=== PATIENT | male | born 1960 | race Caucasian/White ===

== ENCOUNTER 2017-11-28 15:00 | Emergency (ER) | END 2017-11-28 17:21 | disposition home or self-care (01) ==

== ENCOUNTER 2017-12-01 02:14 | Emergency (ER) | END 2017-12-01 05:35 | disposition home or self-care (01) ==

== ENCOUNTER 2017-12-07 13:09 | Emergency (ER) | END 2017-12-07 17:07 | disposition home or self-care (01) ==

== ENCOUNTER 2017-12-24 14:15 | Emergency (ER) | END 2017-12-24 18:36 | disposition home or self-care (01) ==

== ENCOUNTER 2017-12-26 11:16 | Emergency (ER) | END 2017-12-26 14:53 | disposition home or self-care (01) ==

== ENCOUNTER 2018-07-15 17:56 | Emergency (ER) | END 2018-07-16 07:31 | disposition home or self-care (01) ==

== ENCOUNTER 2018-07-23 16:28 | Observation (INO) | END 2018-07-24 17:30 | disposition home or self-care (01) ==

== ENCOUNTER 2018-10-05 18:07 | Emergency (ER) | END 2018-10-05 23:45 | disposition home or self-care (01) ==

== ENCOUNTER 2018-12-23 09:13 | Observation (INO) | payer MEDICAID ==
[~2018-12-23] VITALS: Ht 175.3 cm; Wt 56.1 kg
[~2018-12-23 09:13] MED LIST: ASPI-831 PO; ATOR40TA68 PO; CLOP75TA28 PO; FAMO-96 PO; IBUP-1542 PO; METO-448 PO; NAPR-688 PO
--- NOTE | 2018-12-23 10:45 | ERD ---
ER Documentation Chief Complaint Chief Complaint intermittent CP x 1 year, worsening x this am HPI 58-year-old male presents to the emergency department complaining of chest pain. Patient is a somewhat difficult historian. He states he has had on and off chest pain for some time now, but over the last few hours, he had acute worse wilfred of his chest discomfort. He reports no fevers, chills, shortness of breath. He reports no sputum production or hemoptysis. His pain is in the center of his chest and does not radiate. He is unable to tell me if it is exertional or positional. It is currently moderate in severity. ROS All systems reviewed and are negative except as per history of present illness. Medications Home Meds Active Scripts Aspirin (Aspirin) 81 Mg Chew, 81 MG PO DAILY, #30 TAB Prov:STEVE DYSON 06/23/18 Metoprolol Tartrate* (Lopressor*) 25 Mg Tab, 12.5 MG PO BID, #60 TAB Prov:STEVE DYSON 06/23/18 Atorvastatin* (Atorvastatin*) 40 Mg Tablet, 40 MG PO HS, #30 TAB Prov:STEVE DYSON 06/23/18 Clopidogrel Bisulfate (Clopidogrel) 75 Mg Tablet, 75 MG PO DAILY, #60 TAB Prov:STEVE DSYON 06/23/18 Famotidine* (Pepcid*) 20 Mg Tablet, 20 MG PO BID, #30 TAB Prov:HOWIE MONROE MD 11/21/17 Discontinued Scripts Ibuprofen* (Motrin*) 600 Mg Tab, 600 MG PO Q6, #15 TAB Prov:ALEJANDRO PIEDRA MD 07/21/18 Naproxen* (Naproxen*) 500 Mg Tablet, 500 MG PO BID PRN for PAIN, #30 TAB Prov:GABRIELA CHO PA-C 12/26/17 Allergies Allergies: Coded Allergies: No Known Allergy (Unverified , 12/23/18) PMhx/Soc Medical and Surgical Hx: pt denies Medical Hx, pt denies Surgical Hx History of Surgery: No Anesthesia Reaction: No Hx Neurological Disorder: No Hx Respiratory Disorders: No Hx Cardiac Disorders: Yes (HTN) Hx Psychiatric Problems: No Hx Miscellaneous Medical Probl: No Hx Alcohol Use: Yes Hx Substance Use: No Hx Tobacco Use: Yes Smoking Status: Current every day smoker FmHx No known history of heart disease. Physical Exam Vitals Vital Signs Date Temp Pulse Resp B/P (MAP) Pulse Ox O2 O2 Flow FiO2 Time Delivery Rate 12/23/18 Nasal 2 09:49 Cannula 12/23/18 97.0 96 18 132/80 99 09:16 (97) Physical Exam GENERAL: The patient is well developed and appropriate for usual state of health in no apparent distress HEENT: Pupils equal, round, and reactive to light. EOMI. There is no scleral icterus. NECK: C-spine is soft and supple, there is no meningismus. There is no cervical lymphadenopathy. LUNGS: Clear to auscultation bilaterally. There are no rales, wheezes or rhonchi. HEART: Regular rate and rhythm, no murmurs, clicks, rubs or gallops. ABDOMEN: Soft, non-tender, non-distended. There are bowel sounds in all four quadrants. No rebound or guarding. EXTREMITIES: There is no peripheral cyanosis or edema. No focal swelling or erythema. NEURO: The patient moves all four extremities with 5/5 strength. Cranial nerves II - XII are intact. Normal gait. Alert and oriented SKIN: There is no apparent rash or petechiae. HEME/LYMPHATIC: There is no evidence of excessive bruising or lymphedema. PSYCHIATRIC: The patient does not appear anxious or depressed. Result Diagram: 12/23/18 0947 12/23/18 0947 Results 24 hrs Laboratory Tests Test 12/23/18 09:47 White Blood Count 6.3 10^3/ul Red Blood Count 4.96 10^6/ul Hemoglobin 15.4 g/dl Hematocrit 45.9 % Mean Corpuscular Volume 92.5 fl Mean Corpuscular Hemoglobin 31.0 pg Mean Corpuscular Hemoglobin Concent 33.6 g/dl Red Cell Distribution Width 12.0 % Platelet Count 251 10^3/UL Mean Platelet Volume 10.8 fl Immature Granulocytes % 0.200 % Neutrophils % 38.9 % Lymphocytes % 27.6 % Monocytes % 11.0 % Eosinophils % 21.7 % Basophils % 0.6 % Nucleated Red Blood Cells % 0.0 /100WBC Immature Granulocytes # 0.010 10^3/ul Neutrophils # 2.5 10^3/ul Lymphocytes # 1.7 10^3/ul Monocytes # 0.7 10^3/ul Eosinophils # 1.4 10^3/ul Basophils # 0.0 10^3/ul Nucleated Red Blood Cells # 0.0 10^3/ul Sodium Level 141 mmol/L Potassium Level 4.1 mmol/L Chloride Level 101 mmol/L Carbon Dioxide Level 30 mmol/L Anion Gap 10 Blood Urea Nitrogen 17 mg/dl Creatinine 0.74 mg/dl Est Glomerular Filtrat Rate mL/min > 60 mL/min Glucose Level 97 mg/dl Calcium Level 9.7 mg/dl Troponin I < 0.012 ng/ml Procedures/MDM Patient was taken to a room, seen and evaluated. Comfort measures were initiate d. Diagnostic tests were ordered and reviewed. 3 LEAD RHYTHM STRIP: Normal sinus rhythm without ectopy EK lead EKG reviewed by myself: Normal Sinus Rhythm LVH Nonspecific ST and T wave changes with questionable peaked T waves in the anterior leads Impression: Abnormal nonspecific EKG Repeat EKG interpreted by myself: Normal Sinus Rhythm LVH Nonspecific ST and T wave changes with questionable peaked T waves in the anterior leads Impression: Abnormal nonspecific EKG RADIOLOGY: Reviewed with the radiologist CONSULTATION: Hospitalist was notified for admission REEVALUATION: Diagnostic tests were appreciated. Patient remained hemodynamic is stable. MEDICAL DECISION MAKIN-year-old male presents the emergency room with chest pain of uncertain etiology. Given his abnormal EKG, patient will be admitted for cardiac observation and serial troponins. His chest x-ray and overall clinical examination indicates he is unlikely to have thoracic concerns including aortic dissection or pulmonary embolism. Departure Diagnosis: Primary Impression: Chest pain Condition: Brent CLAROSVANESSA Dec 23, 2018 10:45
--- NOTE | 2018-12-23 14:54 | HP ---
Date/Time of Note Date/Time of Note DATE: 12/23/18 TIME: 14:52 Assessment/Plan Lines/Catheters IV Catheter Type (from [facility]): Saline Lock Assessment/Plan Hospital Course 1. Chest pain 2. CAD PLAN: Telemetry admission, trend cardiac enzymes, 2d echo if none recently and possible cardiology consult for stress test. oxygen and nitroglycerin therapy as needed. Daily aspirin if no allergy or bleeding risk. Get lipid profile, magnesium and TSH levels in am. Result Diagram: 12/23/18 0947 12/23/18 0947 Results 24hrs Laboratory Tests Test 12/23/18 09:47 White Blood Count 6.3 # Red Blood Count 4.96 Hemoglobin 15.4 Hematocrit 45.9 Mean Corpuscular Volume 92.5 Mean Corpuscular Hemoglobin 31.0 Mean Corpuscular Hemoglobin Concent 33.6 Red Cell Distribution Width 12.0 Platelet Count 251 Mean Platelet Volume 10.8 H Immature Granulocytes % 0.200 Neutrophils % 38.9 L Lymphocytes % 27.6 Monocytes % 11.0 Eosinophils % 21.7 H Basophils % 0.6 Nucleated Red Blood Cells % 0.0 Immature Granulocytes # 0.010 Neutrophils # 2.5 Lymphocytes # 1.7 Monocytes # 0.7 Eosinophils # 1.4 H Basophils # 0.0 Nucleated Red Blood Cells # 0.0 Sodium Level 141 Potassium Level 4.1 Chloride Level 101 Carbon Dioxide Level 30 Anion Gap 10 Blood Urea Nitrogen 17 Creatinine 0.74 Est Glomerular Filtrat Rate mL/min > 60 Glucose Level 97 Calcium Level 9.7 Troponin I < 0.012 HPI/ROS Admit Date/Time Admit Date/Time PMH/Family/Social Past Medical History Coded Allergies: No Known Allergy (Unverified , 12/23/18) Past Surgical History Past Surgical Hx: no surgical history Family History Significant Family History: no pertinent family hx Social History Smoking Status: Current every day smoker Exam/Review of Systems Vital Signs Vitals Vital Signs Date Temp Pulse Resp B/P (MAP) Pulse Ox O2 O2 Flow FiO2 Time Delivery Rate 12/23/18 66 18 105/79 98 Room Air 11:12 (88) 12/23/18 2 09:49 12/23/18 97.0 09:16 XOCHITL SEARS Dec 23, 2018 14:53
[2018-12-23 17:48] VITALS: PULSE 59
[2018-12-23 18:06] VITALS: Ht 175.3 cm; Wt 56.1 kg
[2018-12-23 18:10] VITALS: BP 115/73; PULSE 63; RESP 18
[2018-12-23 19:34] VITALS: BP 110/62; PULSE 63; RESP 18
[2018-12-23 20:00] VITALS: PULSE 65
[2018-12-23] MEDS: FAMOTIDINE 20 MG TAB PO SCH (20:47)
[2018-12-23] MEDS: METOPROLOL 25 MG TAB PO SCH (20:47)
[2018-12-23] MEDS ORDERED: ATORVASTATIN 40 MG TAB PO SCH (21:00)
[2018-12-24] VITALS (7 sets, daily range): BP systolic 100–114; BP diastolic 55–66; PULSE 49–70; RESP 17–18
[2018-12-24] MEDS: FAMOTIDINE 20 MG TAB PO SCH (08:21)
[2018-12-24] MEDS: METOPROLOL 25 MG TAB PO SCH (08:22)
[2018-12-24] MEDS ORDERED: CLOPIDOGREL 75 MG TAB PO SCH (09:00)
[2018-12-24] MEDS ORDERED: ASPIRIN 81 MG TAB PO SCH (09:00)
--- NOTE | 2018-12-24 10:46 | CONS ---
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) Medication noncompliance Methamphetamine abuse - ongoing use with current toxicology positive for amphetamines Alcohol abuse Tobacco use - counselled on cessation for >10 minutes Recommendations: -no additional cardiac work up at this time, particularly with medication noncompliance and ongoing amphetamine abuse -patient counselled on importance of medication adherence, particularly aspirin and clopidogrel -continue aspirin 81mg daily indefinitely, continue clopidogrel 75mg daily for at least one year from STEMI/PCI -continue atorvastatin 40mg daily -discontinue metoprolol due to sinus bradycardia Stable for discharge from cardiac standpoint. Consultation Date/Type/Reason Admit Date/Time Type of Consult Cardiology Reason for Consultation chest pain Date/Time of Note DATE: 12/24/18 TIME: 10:39 Hx of Present Illness The patient is a 58 year-old male who presented with chest pain. EKG showed sinus rhythm, rightward axis, and no acute ischemic changes. Troponins have been negative x 3. He had an inferior STEMI 06/21/2018 and underwent PCI with bare metal stent (due to concern with medication compliance) to the RCA. 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 The patient has a history of methamphetamine and alcohol abuse. Current urine toxicology is positive for amphetamines. The patient also reports he has not been taking any medications, including aspirin, as an outpatient. 14 point review of systems negative other than per HPI. Past Medical History Medical History: other (as per HPI) Home Meds Active Scripts Aspirin (Aspirin) 81 Mg Chew, 81 MG PO DAILY, #30 TAB Prov:STEVE DYSON 06/23/18 Metoprolol Tartrate* (Lopressor*) 25 Mg Tab, 12.5 MG PO BID, #60 TAB Prov:REGSTEVE DOWNING 06/23/18 Atorvastatin* (Atorvastatin*) 40 Mg Tablet, 40 MG PO HS, #30 TAB Prov:REGSTEVE DOWNING 06/23/18 Clopidogrel Bisulfate (Clopidogrel) 75 Mg Tablet, 75 MG PO DAILY, #60 TAB Prov:REGSTEVE DOWNING 06/23/18 Famotidine* (Pepcid*) 20 Mg Tablet, 20 MG PO BID, #30 TAB Prov:HOWIE MONROE MD 11/21/17 Discontinued Scripts Ibuprofen* (Motrin*) 600 Mg Tab, 600 MG PO Q6, #15 TAB Prov:ALEJANDRO PIEDRA MD 07/21/18 Naproxen* (Naproxen*) 500 Mg Tablet, 500 MG PO BID PRN for PAIN, #30 TAB Prov:GABRIELA CHO PA-C 12/26/17 Medications Current Medications Aspirin (Aspirin) 81 mg DAILY PO Last administered on 12/24/18 08:21; Admin Dose 81 MG; Start 12/24/18 at 09:00 Atorvastatin Calcium (Lipitor) 40 mg HS PO Last administered on 12/23/18at 20:47; Admin Dose 40 MG; Start 12/23/18 at 21:00 Clopidogrel Bisulfate (plaVIX) 75 mg DAILY PO Last administered on 12/24/18 08:22; Admin Dose 75 MG; Start 12/24/18 at 09:00 Famotidine (Pepcid) 20 mg BID PO Last administered on 12/24/18 08:21; Admin Dose 20 MG; Start 12/23/18 at 21:00 Metoprolol Tartrate (Lopressor) 12.5 mg BID PO Last administered on 12/24/18 08:22; Admin Dose 12.5 MG; Start 12/23/18 at 21:00 Allergies: Coded Allergies: No Known Allergy (Unverified , 12/23/18) Past Surgical History Past Surgical Hx: no surgical history Family History Significant Family History: no pertinent family hx Social History Alcohol Use: heavy Smoking Status: Current every day smoker Drug Use: other (methamphetamine) Exam/Review of Systems Vital Signs Vitals Vital Signs Date Temp Pulse Resp B/P (MAP) Pulse Ox O2 O2 Flow FiO2 Time Delivery Rate 12/24/18 59 08:01 12/24/18 98.3 18 100/55 96 Room Air 07:19 (70) 12/23/18 2 09:49 Intake and Output 12/23/18 12/23/18 12/24/18 1515:00 23:00 07:00 IntakeIntake Total 500 ml BalanceBalance 500 ml Exam Constitutional: alert, well developed Psych: no complaints, nl mood/affect Head: normocephalic, atraumatic Eyes: nl conjunctiva, nl lids ENMT: nl external ears & nose, nl nasal mucosa & septum Neck: supple, non-tender; No jvd Respiratory: clear to auscultation Cardiovascular: regular rate and rhythm Gastrointestinal: soft, non-tender Musculoskeletal: nl extremities to inspection Extremities: No cyanosis, No clubbing, No edema Neurological: nl mental status, nl speech Skin: nl turgor Labs Result Diagram: 12/24/18 0533 12/24/18 0533 Results 24hrs Laboratory Tests Test 12/23/18 15:00 12/23/18 15:40 12/23/18 21:35 12/24/18 05:33 Creatine Kinase 139 113 Creatine Kinase 0.8 0.7 Index Creatinine Kinase MB 1.18 0.83 (Mass) Troponin I 0.034 < 0.012 Urine Opiates Screen Negative Urine Barbiturates Negative Urine Amphetamines POSITIVE Screen Urine Negative Benzodiazepines Screen Urine Cocaine Screen Negative Urine Cannabinoids Negative White Blood Count 6.3 Red Blood Count 4.80 Hemoglobin 15.0 Hematocrit 45.0 Mean Corpuscular 93.8 Volume Mean Corpuscular 31.3 Hemoglobin Mean Corpuscular 33.3 Hemoglobin Concent Red Cell 12.0 Distribution Width Platelet Count 249 Mean Platelet Volume 11.6 H Immature 0.200 Granulocytes % Neutrophils % 31.5 L Lymphocytes % 32.8 Monocytes % 14.1 H Eosinophils % 20.6 H Basophils % 0.8 Nucleated Red Blood 0.0 Cells % Immature 0.010 Granulocytes # Neutrophils # 2.0 Lymphocytes # 2.1 Monocytes # 0.9 Eosinophils # 1.3 H Basophils # 0.1 Nucleated Red Blood 0.0 Cells # Sodium Level 136 Potassium Level 4.6 Chloride Level 102 Carbon Dioxide Level 27 Anion Gap 7 Blood Urea Nitrogen 29 #H Creatinine 0.65 Est Glomerular > 60 Filtrat Rate mL/min Glucose Level 98 Calcium Level 9.6 Phosphorus Level 4.4 Magnesium Level 2.1 Total Bilirubin 0.6 Direct Bilirubin 0.00 Indirect Bilirubin 0.6 Aspartate Amino 42 Transf (AST/SGOT) Alanine 31 Aminotransferase (AL T/SGPT) Alkaline Phosphatase 83 Total Protein 7.1 Albumin 4.0 Triglycerides Level 111 Cholesterol Level 207 H LDL Cholesterol, 93 Calculated HDL Cholesterol 92 H Cholesterol/HDL 2.2 Ratio Medications Medications Current Medications Aspirin (Aspirin) 81 mg DAILY PO Last administered on 12/24/18 08:21; Admin Dose 81 MG; Start 12/24/18 at 09:00 Atorvastatin Calcium (Lipitor) 40 mg HS PO Last administered on 12/23/18 20:47; Admin Dose 40 MG; Start 12/23/18 at 21:00 Clopidogrel Bisulfate (plaVIX) 75 mg DAILY PO Last administered on 12/24/18 08:22; Admin Dose 75 MG; Start 12/24/18 at 09:00 Famotidine (Pepcid) 20 mg BID PO Last administered on 12/24/18 08:21; Admin Dose 20 MG; Start 12/23/18 at 21:00 Metoprolol Tartrate (Lopressor) 12.5 mg BID PO Last administered on 12/24/18 08:22; Admin Dose 12.5 MG; Start 12/23/18 at 21:00 DAY LEZAMA MD Dec 24, 2018 10:46
[2018-12-24] MEDS ORDERED: FAMO-96 PO (11:31)
[2018-12-24] MEDS ORDERED: CLOP75TA28 PO (11:31)
[2018-12-24] MEDS ORDERED: ASPI-831 PO (11:31)
[2018-12-24] MEDS ORDERED: ATOR40TA68 PO (11:31)
--- NOTE | 2018-12-24 11:38 | PDOCDIS ---
Discharge Instructions DIAGNOSIS Discharge Diagnosis Chest Pain. Substance abuse coronary artery disease CONDITION [id number] Patient Condition: [id number] Stable HOME CARE INSTRUCTIONS: [id number] Diet Instructions: [id number] Low Fat /Cholesterol ACTIVITY: [id number] Activity Restrictions: [id number] Slowly Increase Activity Rest between Activity FOLLOW UP/APPOINTMENTS Follow-up Plan Followup with your primary doctor within the next 1-2 weeks. If you don't have one please let someone know, we can give you resources that may help you pick one. You may call Dr Jonas Alvarez's office. he's accepting new patients Name, Degree: Jonas Alvarez MD Specialty: Internal Medicine Comments: Office Address: [address] [place] [address] Office Office You may also call your insurance company to assign one to you. Review your medication list with your nurse before leaving and if you need new prescriptions please let your nurse know. I may have made changes to your home medications or given you new prescriptions, please let your primary doctor know as well. Stay compliant with your medications and report any side effects to your PCP or pharmacist. Return to the ER if you have any concerns and cannot reach your doctors or call your insurance company, they usually have a nurse that can help you. 1. Followup with your primary doctor within the next 1-2 weeks. If you don't have one please let someone know, we can give you resources that may help you pick one. You may call Dr Jonas Alvarez's office. he's accepting new patients 1. Siga con ramirez mdico de cabecera en las prximas 1-2 semanas. Si usted no tiene rosalind por favor Hle saber a alguien, podemos darle recursos que pueden ayudarle a elegir rosalind. Puede llamar a la oficina del Dr. jonas Alvarez. l est aceptando nuevos pacientes Name, Degree: Jonas Alvarez MD Specialty: Internal Medicine Comments: Office Address: [address] [place] [address] [place] [id number] Office Office You may also call your insurance company to assign one to you. 2. Review your medication list with your nurse before leaving and if you need new prescriptions please let your nurse know. 2. Revise ramirez lista de medicamentos con ramirez enfermera antes de salir y si necesita recetas nuevas, por favor Hle saber a ramirez enfermera. 3. I may have made changes to your home medications or given you new prescriptions, please let your primary doctor know as well. 3. puede que haya hecho cambios en tana medicamentos caseros o le haya dado nuevas prescripciones, por favor Hle saber a ramirez mdico de cabecera tambin. 4. Stay compliant with your medications and report any side effects to your PCP or pharmacist. 4. cumpla con tana medicamentos e informe de cualquier efecto secundario a ramirez PCP o farmacutico. 5. Return to the ER if you have any concerns and cannot reach your doctors or call your insurance company, they usually have a nurse that can help you. 5. Regrese a la ER si tiene alguna inquietud y no puede comunicarse con tana doctores o llamar a ramirez compaa de seguros, usualmente tienen ben enfermera que puede ayudarlo. OTHER ORDERS: Other Orders: Please stop using Methamphetamines and abusing alcohol !!!. If you have already stopped, Good for you!!!. It is however an ongoing process. If you need help or resources, please let someone know before you leave. We are here to help you. It has been associated with a lot of disease processes and is not favourable for healing. Por favor, deje de usar metanfetaminas y abuso de alcohol!!!. Si ya has parado, benton para ti!!!. Sin embargo, es un proceso continuo. Si necesita ayuda o recursos, por favor Hle saber a alguien antes de irse. Estamos aqu para ayudarle. Se prater asociado con ben gran cantidad de procesos de la enfermedad y no es favorable para la curacin. . XOCHITL SEARS Dec 24, 2018 11:38
--- NOTE | 2018-12-24 13:13 | HP ---
DATE OF ADMISSION: 12/23/2018 PRESENTING COMPLAINT: Chest pain. HISTORY OF PRESENTING COMPLAINT: A 58-year-old male with a known history of coronary artery disease, status post STEMI back in 06/2018, had PCI at that time as well, also history of amphetamine and alc ohol use, who admits to recent amphetamine use, presented today with chest pain that has been worseni ng over the last hour. The pain is located in his mid chest and nonradiating. Has some shortness of breath associated with this. No fever, no cough. PAST MEDICAL HISTORY: 1. Coronary artery disease. 2. Chronic hypertension. 3. Substance use and abuse. 4. Dyslipidemia. PAST SURGICAL HISTORY: Recent PCI in 06/2018. ALLERGIES: NO KNOWN DRUG ALLERGIES. SOCIAL HISTORY: Positive for substance use as well as alcohol use and possible abuse. HOME MEDICATIONS: Reviewed and reconciled. FAMILY HISTORY: Noncontributory. PHYSICAL EXAMINATION: VITAL SIGNS: Temperature 97.0, pulse 66, respirations 18, blood pressure 105/79, saturations 98% on room air. GENERAL. I found an elderly gentleman who looks older than stated age, currently in no distress. HEENT: Head is normocephalic. Pupils are equal and reactive. NECK: Supple without JVD. CHEST: Clear to auscultation with diminished breath sounds maybe in the bases. CARDIOVASCULAR: S1 and S2. ABDOMEN: Soft, nontender. EXTREMITIES: No lower extremity edema. PSYCHIATRIC: Calm, cooperative with exam. LABORATORY VALUES: The patient has had multiple visits to this hospital revealed overall his labs. At this time, troponins are negative. CBC was basically unremarkable and his chemistry other than T being mildly elevated and low albumin level. There are no significant findings. IMAGING: He had a chest x-ray that was done in the emergency room showed no acute disease. DIAGNOSTIC DATA: EKG was not concerning for acute ST elevations or reciprocal depressions. The last echocardiogram he had in this facility was back in 06/2018 and at that time, he was found to have ej ection fraction of 55% with peak PA systolic pressure of 26 without significant valvular abnormalitie s. ASSESSMENT: This is a 58-year-old male with known substance abuse, who presented with chest pain cur rently being managed as follows: 1. Chest pain, rule out acute coronary syndrome in the setting of methamphetamine use, who has known coronary artery disease status post bare metal stent placement back in 06/2018. 2. Dyslipidemia, on statin therapy. 3. Chronic methamphetamine use and abuse. 4. Possible alcohol abuse. The patient did have elevated alcohol levels and came in intoxicated diego k in 09/2018. PLAN: Admit patient to tele floor and complete ACS rule out. I did not order repeat 2D echo. I will defer to cardiology clinic if that is indicated. We will monitor him. At this time, he is actually chest pain free. Further interventions will depend on his clinical course. Continue on aspirin, Pl avix and statin. Plan of care were discussed with the patient in detail. Questions have been answer ed. For further information and clarification, please review his chart. Dictated By: XOCHITL SEARS MD BA/NTS Conf#: [id number] DID#: [id number] CC: NITHYA FERGUSON;*EndCC*
--- NOTE | 2018-12-24 13:18 | DS ---
DATE OF ADMISSION: 12/23/2018 DATE OF DISCHARGE: 12/24/2018 PRESENTING COMPLAINT: Chest pain. FINAL DIAGNOSES: 1. Chest pain. The patient was rule out for acute coronary syndrome. Chest pain has resolved. Marta st pain is likely secondary to possible coronary strain in the setting of amphetamine use. 2. Hypertension with good control. 3. Known coronary artery disease status post bare metal stent placement back in 06/2018. 4. Chronic substance abuse with methamphetamine, status post counseling. 5. Possible history of alcohol abuse. CONSULTS ON THE CASE: Quoc Deal MD for cardiology. INTERVENTIONS: The patient was monitored on tele overnight and he was ruled out with 3 sets of negat gwendolyn cardiac enzymes. DISPOSITION: To home. ACTIVITIES: As tolerated. DIET: Recommended diet is low cholesterol, low fat. DISCHARGE MEDICATIONS: For a complete list of discharge medications, please review the patient's kallie rt. DISCHARGE CONDITION: Stable. SHORT HOSPITAL COURSE: Basically, the patient came in after he has been using amphetamines for chest pain rule out. At this time, cardiology saw him who did not believe that any further workup is marian cated. The patient was counseled on the need to quit amphetamine use with the knowledge that this co uld actually kill him. He verbalized understanding. We reviewed his echo from the last visit. He h ad preserved ejection fraction. Cardiology determined no further workup was Indicated and the patien t is stable to be discharged as his chest pain had resolved. Total time spent on discharge coordination was about 40 minutes. Dictated By: XOCHITL SEARS MD BA/ANTONIETA Conf#: [id number] DID#: [id number] CC: NITHYA FERGUSON;*EndCC*
== END 2018-12-24 14:25 | disposition home or self-care (01) ==
LOC: E/R 09:13 → TEL 11:17
PROVIDERS: ADMIT Hospitalist; ATTEND Family Medicine
DX: R07.9 Chest pain, unspecified (principal); I25.10 Atherosclerotic heart disease of native coronary artery without angina pectoris; Z95.5 Presence of coronary angioplasty implant and graft; I10 Essential (primary) hypertension; F15.10 Other stimulant abuse, uncomplicated; E78.5 Hyperlipidemia, unspecified; Z79.82 Long term (current) use of aspirin; Z23 Encounter for immunization
CPT/HCPCS: 36415; 71045; 80048; 80061; 80076; 80307; 82550; 82553; 83735; 84100; 84484; 85025; 90686; 93005; Z7500; Z7502; Z7610; G0378

== ENCOUNTER 2019-01-09 01:03 | Emergency (ER) | payer MEDICAID ==
[~2019-01-09] VITALS: Ht 170.2 cm; Wt 59.0 kg
[~2019-01-09 01:03] MED LIST changes: -IBUP-1542 PO; -METO-448 PO; -NAPR-688 PO
[2019-01-09 01:09] VITALS: Ht 170.2 cm; Wt 59.0 kg
--- NOTE | 2019-01-09 03:45 | ERD ---
ER Documentation Chief Complaint Chief Complaint CP radiating to L shoulder X 6 days, bilateral leg pain X 6 yrs HPI 58-year-old man complaining of sharp nonradiating nonexertional chest pain beginning shortly after smoking methamphetamine yesterday afternoon. Patient has a long history of recurrent chest pain and methamphetamine abuse also has a history of DE and stent placement. He denies blood per rectum or melena, no shortness of breath, no fevers or chills, no headache or blurry vision. He states his chest pain resolved after a few hours and is here for evaluation but denies chest pain in the ER. ROS All systems reviewed and are negative except as per history of present illness. Medications Home Meds Discontinued Scripts Aspirin (Aspirin) 81 Mg Chew, 81 MG PO DAILY, #30 TAB 2 Refills Prov:DEVORA SEARSO M. 12/24/18 Atorvastatin* (Atorvastatin*) 40 Mg Tablet, 40 MG PO HS, #30 TAB 2 Refills Prov:REN[facility]HELENA [facility] M. 12/24/18 Clopidogrel Bisulfate (Clopidogrel) 75 Mg Tablet, 75 MG PO DAILY, #30 TAB 2 Refills Prov:RENUDEVORA ThomasO M. 12/24/18 Famotidine* (Pepcid*) 20 Mg Tablet, 20 MG PO BID, #60 TAB 2 Refills Prov:RENUDEVORA ThomasO . 12/24/18 Allergies Allergies: Coded Allergies: No Known Allergy (Unverified , 01/09/19) PMhx/Soc History of DE status post PCI and stent placement, methamphetamine abuse, hypertension, CAD, alcohol abuse History of Surgery: No Anesthesia Reaction: No Hx Neurological Disorder: No Hx Respiratory Disorders: No Hx Cardiac Disorders: No Hx Psychiatric Problems: No Hx Miscellaneous Medical Probl: No Hx Alcohol Use: Yes (5 months ago) Hx Substance Use: Yes (5 months ago) Hx Tobacco Use: No FmHx Family History: No diabetes Physical Exam Vitals Vital Signs Date Temp Pulse Resp B/P (MAP) Pulse Ox O2 O2 Flow FiO2 Time Delivery Rate 01/09/19 55 18 117/75 100 Room Air 04:24 (89) 01/09/19 59 18 122/88 100 Room Air 03:05 (99) 01/09/19 97.5 69 18 134/81 98 01:09 (98) Physical Exam Const: No acute distress, afebrile Head: Atraumatic Eyes: Normal Conjunctiva ENT: Normal External Ears, Nose and Mouth. Neck: Full range of motion. No meningismus. Resp: Clear to auscultation bilaterally Cardio: Regular rate and rhythm, no murmurs Abd: Soft, non tender, non distended. Normal bowel sounds Skin: No petechiae or rashes Back: No midline or flank tenderness Ext: No cyanosis, or edema Neur: Awake and alert x3, no focal deficits or facial asymmetry Psych: Normal Mood and Affect Result Diagram: 01/09/19 03001/09/19 030 Results 24 hrs Laboratory Tests Test 01/09/19 03:02 White Blood Count 7.0 10^3/ul Red Blood Count 4.80 10^6/ul Hemoglobin 14.7 g/dl Hematocrit 44.7 % Mean Corpuscular Volume 93.1 fl Mean Corpuscular Hemoglobin 30.6 pg Mean Corpuscular Hemoglobin Concent 32.9 g/dl Red Cell Distribution Width 12.2 % Platelet Count 248 10^3/UL Mean Platelet Volume 11.5 fl Immature Granulocytes % 0.100 % Neutrophils % 35.5 % Lymphocytes % 34.4 % Monocytes % 13.3 % Eosinophils % 15.8 % Basophils % 0.9 % Nucleated Red Blood Cells % 0.0 /100WBC Immature Granulocytes # 0.010 10^3/ul Neutrophils # 2.5 10^3/ul Lymphocytes # 2.4 10^3/ul Monocytes # 0.9 10^3/ul Eosinophils # 1.1 10^3/ul Basophils # 0.1 10^3/ul Nucleated Red Blood Cells # 0.0 10^3/ul Sodium Level 146 mmol/L Potassium Level 5.0 mmol/L Chloride Level 108 mmol/L Carbon Dioxide Level 32 mmol/L Anion Gap 6 Blood Urea Nitrogen 22 mg/dl Creatinine 0.61 mg/dl Est Glomerular Filtrat Rate mL/min > 60 mL/min Glucose Level 95 mg/dl Calcium Level 9.6 mg/dl Total Bilirubin 0.4 mg/dl Direct Bilirubin 0.00 mg/dl Indirect Bilirubin 0.4 mg/dl Aspartate Amino Transf (AST/SGOT) 39 IU/L Alanine Aminotransferase (ALT/SGPT) 28 IU/L Alkaline Phosphatase 86 IU/L Troponin I < 0.012 ng/ml Total Protein 7.5 g/dl Albumin 4.2 g/dl Globulin 3.30 g/dl Albumin/Globulin Ratio 1.27 Lipase 107 U/L Current Medications Medications Dose Sig/Estrella Start Time Status Last (Trade) Ordered Route PRN Stop Time Admin Dose Reason Admin Ketorolac 30 mg ONCE STAT 01/09/19 DC 01/09/19 Tromethamine IM 03:49 04:11 (Toradol) 01/09/19 03:50 Procedures/MDM IV line was established patient was placed on equipment monitor phototypesetting rhythm strip revealed a sinus rhythm at about 60 bpm with upright P and T waves. Patient was afebrile EKG performed, read by me revealed a normal sinus rhythm at 62 bpm, normal axis, narrow QRS complex, LVH in lead II, no concerning ST elevations or depressions noted One AP view of the chest performed, read by me reveals no acute infiltrates, normal mediastinum, sharp costophrenic and cardiac borders, no air under the diaphragm. Otherwise unremarkable chest x-ray. I administered Toradol 30 mg IM x1 CBC and electrolytes are normal, liver function tests were normal, troponin was negative Differential diagnoses considered, included but not limited to acute coronary syndrome, pulmonary embolism, aortic dissection, abdominal aortic aneurysm, seps is, stroke, meningitis, encephalitis, pneumonia, appendicitis, cholecystitis, bowel obstruction, pyelonephritis, nephrolithiasis, cystitis, as well as metabolic, hematologic, and electrolyte abnormalities. As well as abscess, cellulitis, fractures, and dislocations. Patient feels much better at this time, and vital signs are normal, symptoms have improved. I did give strict instructions to return to the ED if symptoms continue or worsen, patient will otherwise follow-up with primary care physic idalia. Patient understood instructions and agreed to plan. Disclaimer: Inadvertent spelling and grammatical errors are likely due to EHR/dictation software use and do not reflect on the overall quality of patient care. Also, please note that the electronic time recorded on this note does not necessarily reflect the actual time of the patient encounter. Departure Diagnosis: Primary Impression: Chest pain Chest pain type: unspecified Qualified Codes: R07.9 - Chest pain, unspecified Additional Impression: Methamphetamine abuse Condition: HOWIE Culp MD Jan 09, 2019 03:45
[2019-01-09] MEDS ORDERED: KETOROLAC 30 MG INJ IM STA (03:49)
[2019-01-09 05:22] VITALS: BP 97/65; PULSE 59; RESP 18
== END 2019-01-09 05:58 | disposition home or self-care (01) ==
LOC: E/R 01:03
DX: F15.10 Other stimulant abuse, uncomplicated (principal); R40.2142 Coma scale, eyes open, spontaneous, at arrival to emergency department; R40.2252 Coma scale, best verbal response, oriented, at arrival to emergency department; R40.2362 Coma scale, best motor response, obeys commands, at arrival to emergency department; I10 Essential (primary) hypertension; I25.10 Atherosclerotic heart disease of native coronary artery without angina pectoris; I25.2 Old myocardial infarction; Z98.61 Coronary angioplasty status; Z79.82 Long term (current) use of aspirin; Z79.01 Long term (current) use of anticoagulants
CPT/HCPCS: 36415; 80053; 83690; 84484; 85025; 96372; J1885; Z7502; Z7610

== ENCOUNTER 2019-01-11 00:07 | Emergency (ER) | payer MEDICAID ==
[~2019-01-11] VITALS: Ht 167.6 cm; Wt 58.8 kg
[2019-01-11 00:19] VITALS: Ht 167.6 cm; Wt 58.8 kg
[2019-01-11] MEDS ORDERED: KETOROLAC 15 MG INJ IM STA (04:53)
--- NOTE | 2019-01-11 04:57 | ERD ---
ER Documentation Chief Complaint Chief Complaint chest congestion since friday HPI This is a 58-year-old male, who presents for evaluation of chest congestion since Friday. Patient was seen 2 days ago for the same, and had an ACS work-up which was negative, additionally he was admitted last month, and acute cord sy ndrome was ruled out on his admission. He does have a history of meth use, he endorses congestion without fever and without shortness of breath. ROS All systems reviewed and are negative except as per history of present illness. Medications Home Meds Discontinued Scripts Aspirin (Aspirin) 81 Mg Chew, 81 MG PO DAILY, #30 TAB 2 Refills Prov:RENU,HELENAATITO M. 12/24/18 Atorvastatin* (Atorvastatin*) 40 Mg Tablet, 40 MG PO HS, #30 TAB 2 Refills Prov:RENU,HELENAATITO M. 12/24/18 Clopidogrel Bisulfate (Clopidogrel) 75 Mg Tablet, 75 MG PO DAILY, #30 TAB 2 Refills Prov:RENU,HELENAATITO M. 12/24/18 Famotidine* (Pepcid*) 20 Mg Tablet, 20 MG PO BID, #60 TAB 2 Refills Prov:RENU,HELENAATITO M. 12/24/18 Allergies Allergies: Coded Allergies: No Known Allergy (Unverified , 01/09/19) PMhx/Soc History of Surgery: No Anesthesia Reaction: No Hx Neurological Disorder: No Hx Respiratory Disorders: No Hx Cardiac Disorders: No Hx Psychiatric Problems: No Hx Miscellaneous Medical Probl: No Hx Alcohol Use: No Hx Substance Use: No Hx Tobacco Use: No Physical Exam Vitals Vital Signs Date Temp Pulse Resp B/P (MAP) Pulse Ox O2 O2 Flow FiO2 Time Delivery Rate 01/11/19 98.8 74 20 148/85 00:19 (106) Physical Exam Const: No acute distress Head: Atraumatic Eyes: Normal Conjunctiva ENT: Normal External Ears, Nose and Mouth. Neck: Full range of motion. No meningismus. Resp: Clear to auscultation bilaterally Cardio: Regular rate and rhythm, no murmurs Abd: Soft, non tender, non distended. Normal bowel sounds Skin: No petechiae or rashes Back: No midline or flank tenderness Ext: No cyanosis, or edema Neur: Awake and alert Psych: Normal Mood and Affect Results 24 hrs Current Medications Medications Dose Sig/Estrella Start Time Status Last (Trade) Ordered Route PRN Stop Time Admin Dose Reason Admin Ketorolac 15 mg ONCE STAT 01/11/19 DC Tromethamine IM 04:53 01/11/19 (Toradol) 04:54 Procedures/MDM Is a 58-year-old male presents for evaluation of chest congestion. Patient is afebrile and nontoxic-appearing, his EKG shows no acute changes, at this point I do not suspect acute coronary syndrome, he is otherwise hemodynamically stable. Could be chest congestion with a component of muscular skeletal pain, he is given IM Toradol in the ED, at this point he is stable for discharge home, at discharge she was in no acute distress. EKG: Rate/Rhythm: Normal Sinus Rhythm QRS, ST, T-waves: No changes consistent w/ acute ischemia Impression: No evidence of ischemia or arrhythmia Departure Diagnosis: Primary Impression: Patient left without being seen Additional Impression: Chest congestion Condition: Stable HOWIE PAYTON MD Jan 11, 2019 04:57
[2019-01-11 07:28] VITALS: BP 139/83; PULSE 74; RESP 20
== END 2019-01-11 07:28 | disposition home or self-care (01) ==
LOC: E/R 00:07
DX: R09.89 Other specified symptoms and signs involving the circulatory and respiratory systems (principal); R07.89 Other chest pain; Z79.01 Long term (current) use of anticoagulants; Z79.82 Long term (current) use of aspirin
CPT/HCPCS: 93005; 96372; J1885; Z7502

== ENCOUNTER 2019-01-14 00:38 | Emergency (ER) | payer MEDICAID ==
[~2019-01-14] VITALS: Ht 172.7 cm; Wt 60.1 kg
[2019-01-14 00:49] VITALS: Ht 172.7 cm; Wt 60.1 kg
--- NOTE | 2019-01-14 05:43 | ERD ---
ER Documentation Chief Complaint Chief Complaint CP,WEAKNESS, STATES"I FEEL LIKE I'M GOING TO FAINT" X1 WEEK.NNO SOB HPI This is a 58 female complains of chest pain started earlier today that is since subsided. He also complains of mild weakness. Denies any nausea vomiting fevers or chills. Denies any other current complaints with chest pain was sharp right-sided nonexertional non-positional when he did have a but he has no pain now. Patient does have a history of coronary artery disease. Patient has multiple frequent ER visits for similar complaints ROS All systems reviewed and are negative except as per history of present illness. Medications Home Meds Discontinued Scripts Aspirin (Aspirin) 81 Mg Chew, 81 MG PO DAILY, #30 TAB 2 Refills Prov:RENUDEVORA ThomasO M. 12/24/18 Atorvastatin* (Atorvastatin*) 40 Mg Tablet, 40 MG PO HS, #30 TAB 2 Refills Prov:RENU,DEVORAO M. 12/24/18 Clopidogrel Bisulfate (Clopidogrel) 75 Mg Tablet, 75 MG PO DAILY, #30 TAB 2 Refills Prov:RENUDEVORAO M. 12/24/18 Famotidine* (Pepcid*) 20 Mg Tablet, 20 MG PO BID, #60 TAB 2 Refills Prov:RENUDEVORAO M. 12/24/18 Allergies Allergies: Coded Allergies: No Known Allergy (Unverified , 01/09/19) PMhx/Soc History of Surgery: No Anesthesia Reaction: No Hx Neurological Disorder: No Hx Respiratory Disorders: No Hx Cardiac Disorders: Yes Hx Psychiatric Problems: No Hx Miscellaneous Medical Probl: Yes Hx Alcohol Use: Yes Hx Substance Use: Yes Hx Tobacco Use: Yes Smoking Status: Former smoker Physical Exam Vitals Vital Signs Date Temp Pulse Resp B/P (MAP) Pulse Ox O2 O2 Flow FiO2 Time Delivery Rate 01/14/19 97.9 65 16 145/84 100 Room Air 04:00 (104) 01/14/19 97.9 98 16 164/114 100 00:49 (131) Physical Exam Const: No acute distress Head: Atraumatic Eyes: Normal Conjunctiva ENT: Normal External Ears, Nose and Mouth. Neck: Full range of motion. No meningismus. Resp: Clear to auscultation bilaterally Cardio: Regular rate and rhythm, no murmurs Abd: Soft, non tender, non distended. Normal bowel sounds Skin: No petechiae or rashes Back: No midline or flank tenderness Ext: No cyanosis, or edema Neur: Awake and alert Psych: Normal Mood and Affect Result Diagram: 01/14/1941401/14/19414 Results 24 hrs Laboratory Tests Test 01/14/19 04:15 White Blood Count 9.2 10^3/ul Red Blood Count 4.71 10^6/ul Hemoglobin 14.5 g/dl Hematocrit 43.7 % Mean Corpuscular Volume 92.8 fl Mean Corpuscular Hemoglobin 30.8 pg Mean Corpuscular Hemoglobin Concent 33.2 g/dl Red Cell Distribution Width 12.1 % Platelet Count 249 10^3/UL Mean Platelet Volume 10.7 fl Immature Granulocytes % 0.300 % Neutrophils % 50.6 % Lymphocytes % 28.0 % Monocytes % 10.6 % Eosinophils % 9.8 % Basophils % 0.7 % Nucleated Red Blood Cells % 0.0 /100WBC Immature Granulocytes # 0.030 10^3/ul Neutrophils # 4.7 10^3/ul Lymphocytes # 2.6 10^3/ul Monocytes # 1.0 10^3/ul Eosinophils # 0.9 10^3/ul Basophils # 0.1 10^3/ul Nucleated Red Blood Cells # 0.0 10^3/ul Sodium Level 141 mmol/L Potassium Level 3.6 mmol/L Chloride Level 105 mmol/L Carbon Dioxide Level 30 mmol/L Anion Gap 6 Blood Urea Nitrogen 13 mg/dl Creatinine 0.57 mg/dl Est Glomerular Filtrat Rate mL/min > 60 mL/min Glucose Level 110 mg/dl Calcium Level 9.6 mg/dl Total Bilirubin 0.3 mg/dl Direct Bilirubin 0.00 mg/dl Indirect Bilirubin 0.3 mg/dl Aspartate Amino Transf (AST/SGOT) 49 IU/L Alanine Aminotransferase (ALT/SGPT) 40 IU/L Alkaline Phosphatase 100 IU/L Troponin I < 0.012 ng/ml B-Type Natriuretic Peptide 54 PG/ML Total Protein 7.7 g/dl Albumin 4.3 g/dl Globulin 3.40 g/dl Albumin/Globulin Ratio 1.26 Ethyl Alcohol Level < 10.0 mg/dl Procedures/MDM EKG: Rate/Rhythm: [Normal Sinus Rhythm] QRS, ST, T-waves: [No changes consistent w/ acute ischemia] Impression: [No evidence of ischemia or arrhythmia] Chest X-ray 1V Interpreted by me: Soft Tissue: No acute abnormalities Bones: No acute abnormalities Mediastinum/Cardiac Silhouette/Lungs: [No acute abnormalities] Medical decision making: Patient's thoracic symptoms have stabilized while in the department and are stable for outpatient follow up. Exam and work up not consistent w/ ischemia, arrhythmia, PE or dissection. Departure Diagnosis: Primary Impression: Chest pain Chest pain type: unspecified Qualified Codes: R07.9 - Chest pain, unspecified Condition: Stable Patient Instructions: Chest Pain, Uncertain Cause FRANCINE ROTH Jan 14, 2019 05:43
[2019-01-14 06:00] VITALS: BP 128/81; PULSE 70; RESP 16
== END 2019-01-14 06:05 | disposition home or self-care (01) ==
LOC: E/R 00:38
DX: R07.9 Chest pain, unspecified (principal); Z87.891 Personal history of nicotine dependence
CPT/HCPCS: 36415; 71045; 80053; 80307; 83880; 84484; 85025; 93005; Z7502

== ENCOUNTER 2019-01-18 02:02 | Emergency (ER) | payer MEDICAID ==
[~2019-01-18] VITALS: Ht 167.6 cm; Wt 59.6 kg
[2019-01-18 02:13] VITALS: BP 162/97; PULSE 92; RESP 19; Ht 167.6 cm; Wt 59.6 kg
[2019-01-18] MEDS ORDERED: POLY17PO6 PO (05:19)
[2019-01-18] MEDS ORDERED: DOCU-144 PO (05:19)
[2019-01-18] MEDS ORDERED: POLYETHYLENE GLYCOL 17 GM PACKET PO ONE (05:30)
--- NOTE | 2019-01-18 06:13 | ERD ---
ER Documentation Chief Complaint Chief Complaint C/O LT EAR ACHE X4 DAYS, NO BM X2 DAYS HPI This is a 58-year-old male with history of narcotic and substance abuse presents with complaints of constipation times 3 days. Patient states his last bowel movement was a few days ago. He also reports urinary incontinence. He denies any fevers or chills. Denies any significant abdominal pain. Denies any nausea vomiting. Patient was seen here a few weeks ago for same and treated with MiraLAX and Colace. ROS All systems reviewed and are negative except as per history of present illness. Medications Home Meds Active Scripts Docusate Sodium* (Colace*) 100 Mg Capsule, 100 MG PO TID, #30 CAP Prov:DISHIGRIKIANKERRY-C 01/18/19 Polyethylene Glycol* (Miralax*) 17 Gm Powd.pack, 17 GM PO DAILY, #7 Prov:DISHIGRIKIANPAULAUR Manuel PA-C 01/18/19 Allergies Allergies: Coded Allergies: No Known Allergy (Unverified , 01/09/19) PMhx/Soc Medical and Surgical Hx: pt denies Medical Hx, pt denies Surgical Hx History of Surgery: No Anesthesia Reaction: No Hx Neurological Disorder: No Hx Respiratory Disorders: No Hx Cardiac Disorders: Yes Hx Psychiatric Problems: No Hx Miscellaneous Medical Probl: Yes Hx Alcohol Use: Yes (occassional) Hx Substance Use: Yes (crystal meth) Hx Tobacco Use: No Smoking Status: Current some day smoker Physical Exam Vitals Vital Signs Date Temp Pulse Resp B/P (MAP) Pulse Ox O2 O2 Flow FiO2 Time Delivery Rate 01/18/19 98.2 92 19 162/97 96 02:13 (118) Physical Exam Const: No acute distress Head: Atraumatic Eyes: Normal Conjunctiva ENT: Normal External Ears, Nose and Mouth. Neck: Full range of motion. No meningismus. Resp: Clear to auscultation bilaterally Cardio: Regular rate and rhythm, no murmurs Abd: Soft, non tender, non distended. No rebound or guarding. Negative McBurney's point tenderness. Negative Pinto's. Normal bowel sounds Skin: No petechiae or rashes Back: No midline or flank tenderness Ext: No cyanosis, or edema Neur: Awake and alert Psych: Normal Mood and Affect Results 24 hrs Laboratory Tests Test 01/18/19 03:15 Urine Color YELLOW Urine Clarity CLEAR Urine pH 6.0 Urine Specific Tillar 1.020 Urine Ketones NEGATIVE mg/dL Urine Nitrite NEGATIVE mg/dL Urine Bilirubin NEGATIVE mg/dL Urine Urobilinogen NEGATIVE mg/dL Urine Leukocyte Esterase NEGATIVE Jose Rafael/ul Urine Hemoglobin NEGATIVE mg/dL Urine Glucose NEGATIVE mg/dL Urine Total Protein NEGATIVE mg/dl Current Medications Medications Dose Sig/Estrella Start Time Status Last (Trade) Ordered Route PRN Stop Time Admin Dose Reason Admin 17 gm ONCE ONCE 01/18/19 DC 01/18/19 Polyethylene PO 05:30 01/18/19 05:20 Glycol 05:30 (Miralax) Procedures/MDM LABS Urine: no e/o acute infection or hematuria DIAGNOSTIC IMAGING: PROCEDURE: XR Abdomen. CLINICAL INDICATION: Constipation TECHNIQUE: Single AP view of the abdomen. COMPARISON: DR GASPAR 12/24/2017. FINDINGS: There is a moderate amount of retained stool within the ascending and transverse colon. No significant dilatation of the small bowel or evidence of obstruction. There is no sign of intraperitoneal free air. No pathologic calcifications identified. There is degenerative marginal spurring throughout the lower thoracic and lumbar spine, regional bones otherwise intact. IMPRESSION: Moderate amount of retained stool within the proximal large bowel, suggesting constipation. ED COURSE: The patient was given MiraLAX The medication was well tolerated and the patient had market improvement in symptoms. The patient remained stable throughout ED course. MEDICAL DECISION MAKING: This is a 58-year-old male with history of narcotic abuse presents with constipation. He is afebrile here and vital signs are stable. No evidence of an acute surgical abdomen on physical exam. UA as above unremarkable. KUB with evidence of moderate stool, consistent with constipation. No evidence of perforation or obstruction. Patient was given MiraLAX here in the ED. He was discharged home with prescription for both MiraLAX and Colace. Recommended following up with the regular doctor in 2 days, otherwise return here for any new or worsening symptoms. PRESCRIPTIONS: Maalox, Colace SPECIALIST FOLLOW UP RECOMMENDED: None Patient has been advised to follow up with primary care in 1-2 days. Blood Pressure Assessment: Patient's blood pressure was elevated (>120/80) but appears stable without evidence of hypertension emergency or urgency. The patient was counseled about the risks of hypertension and urged to pursue outpatient monitoring and therapy within a week with their primary care physician. Departure Diagnosis: Primary Impression: Constipation Constipation type: unspecified constipation type Qualified Codes: K59.00 - Constipation, unspecified Additional Impression: Substance abuse Condition: Stable Patient Instructions: Constipation (Adult) Additional Instructions: Paciente aconseja volver a Departamento de urgencias inmediatamente para sntomas nuevos o que empeoran . Paciente aconseja posteriores con el PCP en 1-2 collins. Si el paciente no tiene ninguna de atencin primaria pueden seguir con [facility] [id number] [place] [id number] o [facility] + [address] [address] KERRY HUERTA PA-C Jan 18, 2019 06:13
== END 2019-01-18 05:30 | disposition home or self-care (01) ==
LOC: FTE 02:02
DX: K59.00 Constipation, unspecified (principal); F19.10 Other psychoactive substance abuse, uncomplicated; F17.210 Nicotine dependence, cigarettes, uncomplicated
CPT/HCPCS: 74018; 81003; Z7502; Z7610

== ENCOUNTER 2019-01-22 01:35 | Emergency (ER) | payer MEDICAID ==
[~2019-01-22] VITALS: Wt 60.1 kg
[~2019-01-22 01:35] MED LIST changes: -ASPI-831 PO; -ATOR40TA68 PO; -CLOP75TA28 PO; +DOCU-144 PO; -FAMO-96 PO; +POLY17PO6 PO
[2019-01-22 03:24] VITALS: BP 128/77; PULSE 65; RESP 16
[2019-01-22] MEDS ORDERED: IBUPROFEN 600 MG TAB PO ONE (03:30)
[2019-01-22] MEDS ORDERED: MAGNESIUM HYDROXIDE 30ML CUP PO ONE (03:30)
--- NOTE | 2019-01-22 05:50 | ERD ---
ER Documentation Chief Complaint Chief Complaint AP, BILAT LEG PAIN; C/O "KNOT IN RECTUM" HPI 58-year-old male presenting with multiple complaints. He states that he is constipated but this is been going on for quite some time. He also complains of chronic knee and foot pain that he describes as burning and aching. He has had this for several months. He has been here multiple times this month for the same symptoms. He has been given multiple prescriptions but is not filling them. He states that he cannot afford them. No fevers or chills. No nausea or vomiting. Abdominal pain is dull, aching, 5 out of 10, nonradiating. Denies pain in rectum or hematochezia. He did have a bowel movement 2 days ago. ROS All systems reviewed and are negative except as per history of present illness. Medications Home Meds Active Scripts Docusate Sodium* (Colace*) 100 Mg Capsule, 100 MG PO TID, #30 CAP Prov:DISHIGRIKIANZEPYUR N PA-C 01/18/19 Polyethylene Glycol* (Miralax*) 17 Gm Powd.pack, 17 GM PO DAILY, #7 Prov:DISHIGRIKIAN,ZEPYUR N PA-C 01/18/19 Allergies Allergies: Coded Allergies: No Known Allergy (Unverified , 01/09/19) PMhx/Soc Medical and Surgical Hx: pt denies Surgical Hx History of Surgery: No Anesthesia Reaction: No Hx Neurological Disorder: No Hx Respiratory Disorders: No Hx Cardiac Disorders: Yes Hx Psychiatric Problems: No Hx Miscellaneous Medical Probl: Yes (drug abuse) Hx Alcohol Use: Yes (occassional) Hx Substance Use: Yes (crystal meth) Hx Tobacco Use: No Smoking Status: Never smoker FmHx Family History: No diabetes Physical Exam Vitals Vital Signs Date Temp Pulse Resp B/P (MAP) Pulse Ox O2 O2 Flow FiO2 Time Delivery Rate 01/22/19 98.3 65 16 128/77 99 Room Air 03:24 (94) 01/22/19 97.0 71 18 136/87 99 01:44 (103) Physical Exam Const: No acute distress Head: Atraumatic Eyes: Normal Conjunctiva ENT: Normal External Ears, Nose and Mouth. Neck: Full range of motion. No meningismus. Resp: Clear to auscultation bilaterally Cardio: Regular rate and rhythm, no murmurs Abd: Soft, non tender, non distended. Normal bowel sounds Skin: No petechiae or rashes Back: No midline or flank tenderness Ext: No cyanosis, or edema Neur: Awake and alert, oriented x3, no facial asymmetry, no dysarthria, strength and sensations intact in all 4 extremities Psych: Rapid speech. Normal Mood and Affect Results 24 hrs Current Medications Medications Dose Sig/Estrella Start Time Status Last (Trade) Ordered Route PRN Stop Time Admin Dose Reason Admin Magnesium 45 ml ONCE ONCE 01/22/19 DC 01/22/19 Hydroxide PO 03:30 03:18 (Milk Of Mag) 01/22/19 03:30 Ibuprofen 600 mg ONCE ONCE 01/22/19 DC 01/22/19 (Motrin) PO 03:30 03:18 01/22/19 03:30 Procedures/MDM I explained to the patient that his constipation can be treated with medications but he would have to buy these medications. I did give him a dose of milk of magnesia here. I do not suspect acute surgical abdomen. He does not have any joint swelling or evidence of septic joint. No evidence of cellulitis or deformities in the extremities. He is neurovascularly intact on exam. I feel the patient is stable for discharge. Referral to [facility] and community clinics were given. Patient's blood pressure was elevated (>120/80) but appears stable without evidence of hypertension emergency or urgency. The patient was counseled about the risks of hypertension and urged to pursue outpatient monitoring and therapy within a week with their primary care physician. Departure Diagnosis: Primary Impression: Constipation Constipation type: unspecified constipation type Qualified Codes: K59.00 - Constipation, unspecified Additional Impression: Chronic leg pain Laterality: bilateral Qualified Codes: M79.604 - Pain in right leg; M79.605 - Pain in left leg; G89.29 - Other chronic pain Condition: Stable Patient Instructions: Constipation (Adult) Referrals: [facility]) Usted se prater hecho un examen mdico de control que le indica que no est en ben condicin que requiera tratamiento urgente en el Departamento de Emergencia. Un estudio ms profundo y el tratamiento de ramirez condicin pueden esperar sin ningn riesgo hasta que usted sea atendida/o en el consultorio de ramirez mdico o ben clnica. Es responsabilidad suya arreglar ben leanne para el seguimiento del marjorie. MANEJO DE CONDICIONES NO URGENTES EN EL FUTURO 1) Si usted tiene un mdico de atencin primaria: Usted debera llamar a ramirez mdico de atencin primaria antes de venir al departamento de emergencia. Despus de las horas de consultorio, ramirez doctor o ramirez asociado/a est disponible por telfono. El mdico o enfermero de ramone en el servicio telefnico puede asesorarle por che medio para atender el problema, o marjorie contrario se puede programar ben leanne. 2) Si usted no tiene un mdico de atencin primaria: Llame al mdico o clnica de referencia que aparece abajo chip las horas de consultorio para hacer ben leanne para que le vean. CLINICAS: [facility] [phone] [address] [facility] [phone] [address] [facility]. [facility] [phone] [address] [facility]. [place] [phone] [facility]. [place] [phone] [facility]. [phone] [address] [facility] () Elizabeth se prater hecho un examen mdico de control que le indica que no est en ben condicin que requiera tratamiento urgente en el Departamento de Emergencia. Un estudio ms profundo y el tratamiento de ramirez condicin pueden esperar sin ningn riesgo hasta que ted sea atendida/o en el consultorio de ramirez mdico o ben clnica. Es responsabilidad suya arreglar ben leanne para el seguimiento del marjorie. MANEJO DE CONDICIONES NO URGENTES EN EL FUTURO 1) Si usted tiene un mdico de atencin primaria: Usted debera llamar a ramirez mdico de atencin primaria antes de venir al departamento de emergencia. Despus de las horas de consultorio, ramirez doctor o ramirez asociado/a est disponible por telfono. El mdico o enfermero de ramone en el servicio telefnico puede asesorarle por che medio para atender el problema, o marjorie contrario se puede programar ben leanne. 2) Si usted no tiene un mdico de atencin primaria: Llame al mdico o condado institucions de referencia que aparece abajo chip las horas de consultorio para hacer ben leanne para que le vean. SI USTED NO PUEDE PAGAR PARA WES UN MEDICO puede ir a: [facility] [address] [place] [address] [facility] [address] [place] [address] [facility] [address] [place] [address] [facility] [address] [place] [address] KELLIE HURTADO MD Jan 22, 2019 05:50
== END 2019-01-22 03:26 | disposition home or self-care (01) ==
LOC: E/R 01:35
DX: K59.00 Constipation, unspecified (principal); M79.605 Pain in left leg
CPT/HCPCS: Z7502; Z7610; 99282

== ENCOUNTER 2019-02-02 10:56 | Emergency (ER) | payer MEDICAID ==
[~2019-02-02] VITALS: Ht 165.1 cm; Wt 70.0 kg
[2019-02-02 11:04] VITALS: Ht 165.1 cm; Wt 70.0 kg
[2019-02-02] MEDS ORDERED: SOD CHLORIDE 0.9% 1,000 ML IV STA (11:46)
[2019-02-02] MEDS ORDERED: FAMO20TA18 PO (12:29)
[2019-02-02] MEDS ORDERED: ATOR40TA68 PO (12:29)
[2019-02-02] MEDS ORDERED: CLOP75TA27 PO (12:29)
[2019-02-02] MEDS ORDERED: ONDANSETRON 4 MG INJ IV STA (13:50)
--- NOTE | 2019-02-02 13:55 | ERD ---
ER Documentation Chief Complaint Chief Complaint pt is bib self with c/o dizziness with nausea, constipation, HPI This is a 58-year-old male with a past medical history of hypertension, hyperlipidemia, previous heart attack on aspirin and Plavix, polysubstance abuse including alcohol and methamphetamine is presenting for multiple complaints today. He feels generally unwell. He does admit to using methamphetamine recently. He has had intermittent episodes of lightheadedness with nausea but no vomiting. The patient also endorses chronic constipation. The patient's symptoms started after he was kicked out of his home yesterday. The patient reports a need for housing. The patient denies feeling sick recently. The patient denies fever or chills. The patient has had no headache or vision changes. The patient does not endorse neck or back pain. The patient denies dizziness. The patient has had no chest pain or trouble breathing. The patient denies changes to urination. The patient has had no focal deficits. The patient has had no weakness or numbness or tingling to the face or extremities. ROS All systems reviewed and are negative except as per history of present illness. Medications Home Meds Reported Medications Famotidine* (Famotidine*) 20 Mg Tablet, 20 MG PO BID, #60 TAB 02/02/19 Atorvastatin* (Atorvastatin*) 40 Mg Tablet, 40 MG PO DAILY, #30 TAB 02/02/19 Clopidogrel Bisulfate (Clopidogrel) 75 Mg Tablet, 75 MG PO DAILY, #30 TAB 02/02/19 Discontinued Scripts Docusate Sodium* (Colace*) 100 Mg Capsule, 100 MG PO TID, #30 CAP Prov:ARLETHIGRKERRY JOYNER-C 01/18/19 Polyethylene Glycol* (Miralax*) 17 Gm Powd.pack, 17 GM PO DAILY, #7 Prov:ARLETHIGRIKIKERRY HERNANDEZ PA-C 01/18/19 Allergies Allergies: Coded Allergies: No Known Allergy (Unverified , 02/02/19) PMhx/Soc History of Surgery: No Anesthesia Reaction: No Hx Neurological Disorder: No Hx Respiratory Disorders: No Hx Cardiac Disorders: Yes (Hypertension, hyperlipidemia, coronary artery disease) Hx Psychiatric Problems: No Hx Miscellaneous Medical Probl: Yes (Constipation, GERD) Hx Alcohol Use: Yes (occassional) Hx Substance Use: Yes (crystal meth) Hx Tobacco Use: Yes Smoking Status: Current some day smoker Physical Exam Vitals Vital Signs Date Temp Pulse Resp B/P (MAP) Pulse Ox O2 O2 Flow FiO2 Time Delivery Rate 02/02/19 97.6 66 20 121/89 100 Room Air 13:04 (100) 02/02/19 61 20 112/78 99 Room Air 12:25 (89) 02/02/19 97.9 70 18 141/89 98 11:04 (106) Physical Exam Const: No apparent distress, well-developed, well-nourished Head: Normocephalic, Atraumatic Eyes: Normal Conjunctiva. Extraocular movements intact. Pupils equal, round and reactive to light ENT: Normal External Ears, Nose and Mouth. Neck: Full range of motion. No meningismus. Resp: Clear to auscultation bilaterally, No wheezes, rales or rhonchi Cardio: Regular rate and rhythm. No murmurs, rubs or gallops Abd: Soft, non tender, non distended. Normal bowel sounds Skin: No petechiae or rashes Back: No midline tenderness. No CVA tenderness Ext: No cyanosis, or edema Neur: Awake and alert, oriented 4. Cranial nerves intact. No facial droop. Normal strength, sensation and coordination. Psych: Hyperactive, pressured speech. No suicidal or homicidal ideations. No auditory or visual hallucinations. Result Diagram: 02/02/19 1207 02/02/19 1207 Results 24 hrs Laboratory Tests Test 02/02/19 12:07 02/02/19 12:11 White Blood Count 7.0 10^3/ul Red Blood Count 4.92 10^6/ul Hemoglobin 15.3 g/dl Hematocrit 45.4 % Mean Corpuscular Volume 92.3 fl Mean Corpuscular Hemoglobin 31.1 pg Mean Corpuscular Hemoglobin Concent 33.7 g/dl Red Cell Distribution Width 12.0 % Platelet Count 241 10^3/UL Mean Platelet Volume 11.2 fl Immature Granulocytes % 0.300 % Neutrophils % 41.2 % Lymphocytes % 30.5 % Monocytes % 9.2 % Eosinophils % 17.8 % Basophils % 1.0 % Nucleated Red Blood Cells % 0.0 /100WBC Immature Granulocytes # 0.020 10^3/ul Neutrophils # 2.9 10^3/ul Lymphocytes # 2.1 10^3/ul Monocytes # 0.6 10^3/ul Eosinophils # 1.2 10^3/ul Basophils # 0.1 10^3/ul Nucleated Red Blood Cells # 0.0 10^3/ul Prothrombin Time 11.5 Sec Prothrombin Time Ratio 0.9 INR International Normalized Ratio 0.83 Sodium Level 141 mmol/L Potassium Level 4.1 mmol/L Chloride Level 107 mmol/L Carbon Dioxide Level 26 mmol/L Anion Gap 8 Blood Urea Nitrogen 22 mg/dl Creatinine 0.54 mg/dl Est Glomerular Filtrat Rate mL/min > 60 mL/min Glucose Level 105 mg/dl Calcium Level 10.1 mg/dl Total Bilirubin 0.5 mg/dl Direct Bilirubin 0.00 mg/dl Indirect Bilirubin 0.5 mg/dl Aspartate Amino Transf (AST/SGOT) 43 IU/L Alanine Aminotransferase (ALT/SGPT) 34 IU/L Alkaline Phosphatase 97 IU/L Troponin I < 0.012 ng/ml Total Protein 8.1 g/dl Albumin 4.6 g/dl Globulin 3.50 g/dl Albumin/Globulin Ratio 1.31 Lipase 233 U/L Urine Color YELLOW Urine Clarity CLEAR Urine pH 5.0 Urine Specific [place] 1.014 Urine Ketones NEGATIVE mg/dL Urine Nitrite NEGATIVE mg/dL Urine Bilirubin NEGATIVE mg/dL Urine Urobilinogen NEGATIVE mg/dL Urine Leukocyte Esterase NEGATIVE Jose Rafael/ul Urine Hemoglobin NEGATIVE mg/dL Urine Glucose NEGATIVE mg/dL Urine Total Protein NEGATIVE mg/dl Current Medications Medications Dose Sig/Estrella Start Time Status Last (Trade) Ordered Route PRN Stop Time Admin Dose Reason Admin Sodium 1,000 ml @ Q1H STAT 02/02/19 DC 02/02/19 Chloride 1,000 mls/hr IV 11:46 12:15 02/02/19 12:45 Procedures/MDM MDM The patient's presentation warrants further investigation. Previous medical records, if available, were reviewed. LABS The patient's laboratory testing was obtained and reviewed. No emergent treatment was required unless described below. CBC: No E/o systemic infection or severe anemia or thrombocytopenia Chemistry: No E/o severe acidosis or alkalosis or renal failure or liver disease or diabetic ketoacidosis Lipase: No E/o pancreatitis PT/INR: No E/o significant coagulopathy Troponin: No E/o acute ischemia Urine: No E/o acute infection or hematuria EKG EKG read by me: Rate/Rhythm: Regular rate and rhythm at a rate of 62 bpm Intervals: Normal [place]: Rightward axis Impression: No evidence of acute ischemia or arrhythmia IMAGING Imaging and Radiology interpretation reviewed. CXR FINDINGS: No pulmonary consolidation or edema. No effusion or pneumothorax. Cardiac silhouette is normal. No acute osseous abnormality. IMPRESSION: No evidence for active cardiopulmonary disease. Electronically viewed and signed by Physician Kinga on 02/02/2019 12:39 TREATMENT/DISPOSITION The patient presents with lightheadedness and nausea. He admits to methamphetamine abuse, and I suspect this to be the etiology of his symptoms today. The patient has a reassuring physical exam. The patient is not clinically orthostatic. The patient is not dizzy. I have decreased suspicion for vertigo. The patient has no signs of emergent or symptomatic anemia. The patient does not have any emergent electrolyte or metabolic emergencies. I have decrease suspicion for a thyroid disorder. The patient is not toxic appearing. I have decreased suspicion for an infectious etiology of symptoms. The patient's EKG and troponin are reassuring. I have low suspicion for acute coronary syndrome. I do not see evidence of any emergent cardiac arrhythmia, which includes but is not limited to heart block, Brugada syndrome or WPW. The patient has no heart murmurs or rales. There is no evidence of cardiomegaly on exam or chest xray. I have low suspicion for hypertrophic cardiomyopathy. I do not see evidence of CHF. The patient does not endorse any chest or pleuritic pain. The history is negative for bleeding or clotting disorders. The patient has not been involved in any recent prolonged trips or surgeries or hospital izations. The patient has no calf tenderness or swelling. I have decreased suspicion for PE as the etiology of symptoms. The patient has no focal deficits. The neurologic exam is reassuring. I have d ecreased suspicion for cerebral ischemia. There was no trauma or injury. There is no personal or family history of cerebral aneurysm. I have decreased suspicion for SAH or other ICH. I have low suspicion for temporal arteritis, cavernous venous thrombosis, subdural hematoma, epidural hematoma, meningitis. The [place] Syncope Rule was applied and the patient was found to be low risk for a serious outcome. The patient endorses mild abdominal discomfort as well. He had no abdominal tenderness on exam. The patient does not have any evidence of peritonitis. The patient does not have clinical symptoms concerning for mesenteric ischemia or ischemic colitis. The patient does not have right upper quadrant tenderness, and I have low suspicion for gallstones, cholecystitis or biliary colic. The patient does not have any epigastric pain. I have low suspicion for gastritis, PUD or GERD. The patient does not have left upper quadrant tenderness. I have low suspicion for pancreatitis. The patient does not have any right lower quadrant tenderness, or periumbilical tenderness. I have low suspicion for appendicitis. The patient does not have suprapubic tenderness. I have decreased suspicion for cystitis. The patient does not have any left lower quadrant tenderness, and I have low suspicion for diverticulosis or diverticulitis. The patient does not have any flank tenderness. The patient does not have gross hematuria. I have decreased suspicion for nephrolithiasis or renal colic. The patient does not have any palpable pulsatile mass or severe abdominal pain radiating to the back. I have low suspicion for aortic aneurysm, dissection or rupture. The patient was treated with IV fluids and Zofran in the emergency department with improvement of his symptoms. DISCHARGE Upon reevaluation of the patient, symptoms have improved. No emergent diagnoses were identified. At this time, I feel that the patient stable for discharge. The patient was instructed to follow-up with a primary care physician in 1-3 days. The patient will be given strict precautions with which to return to the emergency department. Prescriptions: Zofran The patient is medically stable for discharge. That said, the patient is homeless. Social work was consulted. The patient will be provided homeless resources in accordance with hospital policy. The patient's blood pressure was elevated at greater than 120/80 while in the emergency department. The patient was otherwise stable with no evidence of hypertensive urgency or emergency. The patient does not require admission for blood pressure control. I have discussed with the patient the risks of hypertension. I have instructed the patient to return to the ER for any new or worsening symptoms including chest pain, shortness of breath, headache, blurred vision, confusion, nausea, vomiting or LOC. I have advised the patient to follow up with the primary care physician for outpatient monitoring and treatment for hypertension in 1-3 days. Disclaimer: Inadvertent spelling and grammatical errors are likely due to EHR/dictation software use and do not reflect on the overall quality of patient care. Note that the electronic time recorded on this note does not necessarily reflect the actual time of the patient encounter. Departure Diagnosis: Primary Impression: Lightheadedness Additional Impressions: Nausea Hyperactive behavior Methamphetamine abuse Homelessness Condition: Stable Patient Instructions: Abdominal Pain, Nausea, Understanding Methamphetamine Abuse and Addiction Additional Instructions: Thank you for for coming to [facility] for your care today. Please ask your nurse or provider if you have questions about your care today and do not leave until all your questions have been answered. Please use any medications given as directed and follow-up with your doctor (or the doctor you were referred to) in the next 1-3 days. If you do not have a primary care doctor you may follow up at the [facility] or [facility] (listed below). You may also use motrin and tylenol as needed for fever and/or pain unless instructed otherwise by your provider or nurse. Indications for more urgent follow-up have been discussed, but you may return to the Emergency Department at ANY time for any worrisome or worsening symptoms. If you have abdominal pain, please know that no test or exam you received is perfect and you should follow up within 8 hours for continued pain. If you had any imaging studies today, such as an X-Ray or CT Scan, these studies will be reviewed later by a radiologist. You will be called if there are important findings that were not identified today, so make sure the contact information you provided at registration is correct. If you received any narcotic pain control medicine today, such as Vicodin, Morphine or Dilaudid, your coordination and judgment may be affected for a number of hours. Please do not drive or operate heavy machinery, and you may want someone to assist you at home. If you were given a prescription for narcotic medication, be aware that it is very addictive- use sparingly and only if necessary. PLEASE SEEK FURTHER EVALUATION AND MANAGEMENT AT YOUR DOCTORS OFFICE WITHIN THE NEXT 1-3 DAYS. IT IS YOUR RESPONSIBILITY TO MAKE AN APPOINTMENT FOR FOLOW-UP CARE. IF YOU HAVE A PRIMARY DOCTOR, PLEASE CALL THEIR OFFICE TO SCHEDULE AN APPOINTMENT FOR FOLLOW UP. IF YOU DO NOT HAVE A PRIMARY DOCTOR YOU CAN CALL OUR PHYSICIAN REFERRAL HOTLINE AT IF YOU CAN NOT AFFORD TO SEE A PHYSICIAN YOU CAN CHOSE FROM THE FOLLOWING [facility] CLINICS: [facility] [address] [facility]. [address] [facility] [address] [facility]. [facility] [address] [facility] [address] [facility] [address] [facility]. [facility]. [address] MICHELLE ANSARI MD Feb 02, 2019 13:53
[2019-02-02] MEDS ORDERED: ONDA4TAB8 PO (13:56)
--- NOTE | 2019-02-02 16:36 | PSY ---
Date/Time of Note Date/Time of Note DATE: 02/02/19 TIME: 16:33 Psychiatric Subjective Eval Consent Pt consented to telemedicine: Yes Subjective Evaluation Patient location: emergency Chief Complaint: pt is bib self with c/o dizziness with nausea, constipation, History of present illness 58 yo male with hx CAD and NE, meth and alcohol use presents to ED c/o dizziness but also says people are putting things in his body and these things travel inside his body and make him feel bad; he also says he is able to stop cars with his palms; he is paranoid and disorganized, tactile and VH. Denies SI or HI. Past psychiatric history no inpt, no hx treatments Hospitalization: no Family History denies Medical history Problems Medical Problems: (1) Abdominal pain Status: Acute (2) Abdominal pain Status: Acute (3) Abdominal pain Status: Acute (4) Acute psychosis Status: Acute (5) Chest congestion Status: Acute (6) Chest pain Status: Acute (7) Chest pain Status: Acute (8) Chest pain Status: Acute (9) Chest pain Status: Acute (10) Chest pain Status: Acute (11) Chronic abdominal pain Status: Acute (12) Chronic leg pain Status: Acute (13) Chronic leg pain Status: Acute (14) Constipation Status: Acute (15) Constipation Status: Acute (16) Constipation Status: Acute (17) Delusions of parasitosis Status: Acute (18) Homelessness Status: Acute (19) Hyperactive behavior Status: Acute (20) Lightheadedness Status: Acute (21) Methamphetamine abuse Status: Acute (22) Methamphetamine abuse Status: Acute (23) Methamphetamine abuse Status: Acute (24) Nausea Status: Acute (25) Neck pain Status: Acute (26) Neck pain Status: Acute (27) Pain in testicle Status: Acute (28) Pain in testicle Status: Acute (29) Pain in testicle Status: Acute (30) Patient left without being seen Status: Acute (31) Rash Status: Acute (32) Rash Status: Acute (33) ST elevation myocardial infarction (STEMI) Status: Acute (34) Substance abuse Status: Acute (35) Testicular injury Status: Acute (36) Testicular pain Status: Acute (37) Testicular pain Status: Acute (38) Testicular pain Status: Acute Allergies: Coded Allergies: No Known Allergy (Unverified , 02/02/19) Substance Abuse Substance abuse history: Yes Prior substance abuse treatmen: No Social History Marital status: single DPA/Conservatorship: No Occupation/Chcf: unemployed Psychiatric Objective Eval Review of Systems: Review of Systems: Not Applicable Mental Status Examination: Eye Contact: Fair Psychomotor Activity: Other Behavior: Cooperative Speech: Disorganized AFFECT: Anxious Mood: Anxious Though Process: Tangential Thought Content: Delusions, Hallucinations, Ideas of Reference Suicidal: No Homicidal: No On 72 hour hold: No Orientation: x3 Cognition: Alert Insight: Impared Judgement: Impared Laboratory Results Laboratory Tests Test 02/02/19 12:07 02/02/19 12:11 02/02/19 15:05 White Blood Count 7.0 10^3/ul Red Blood Count 4.92 10^6/ul Hemoglobin 15.3 g/dl Hematocrit 45.4 % Mean Corpuscular Volume 92.3 fl Mean Corpuscular Hemoglobin 31.1 pg Mean Corpuscular 33.7 g/dl Hemoglobin Concent Red Cell Distribution Width 12.0 % Platelet Count 241 10^3/UL Mean Platelet Volume 11.2 fl Immature Granulocytes % 0.300 % Neutrophils % 41.2 % Lymphocytes % 30.5 % Monocytes % 9.2 % Eosinophils % 17.8 % Basophils % 1.0 % Nucleated Red Blood Cells % 0.0 /100WBC Immature Granulocytes # 0.020 10^3/ul Neutrophils # 2.9 10^3/ul Lymphocytes # 2.1 10^3/ul Monocytes # 0.6 10^3/ul Eosinophils # 1.2 10^3/ul Basophils # 0.1 10^3/ul Nucleated Red Blood Cells # 0.0 10^3/ul Prothrombin Time 11.5 Sec Prothrombin Time Ratio 0.9 INR International 0.83 Normalized Ratio Sodium Level 141 mmol/L Potassium Level 4.1 mmol/L Chloride Level 107 mmol/L Carbon Dioxide Level 26 mmol/L Anion Gap 8 Blood Urea Nitrogen 22 mg/dl Creatinine 0.54 mg/dl Est Glomerular Filtrat > 60 mL/min Rate mL/min Glucose Level 105 mg/dl Calcium Level 10.1 mg/dl Total Bilirubin 0.5 mg/dl Direct Bilirubin 0.00 mg/dl Indirect Bilirubin 0.5 mg/dl Aspartate Amino 43 IU/L Transf (AST/SGOT) Alanine 34 IU/L Aminotransferase (ALT/SGPT) Alkaline Phosphatase 97 IU/L Troponin I < 0.012 ng/ml Total Protein 8.1 g/dl Albumin 4.6 g/dl Globulin 3.50 g/dl Albumin/Globulin Ratio 1.31 Lipase 233 U/L Urine Color YELLOW Urine Clarity CLEAR Urine pH 5.0 Urine Specific [place] 1.014 Urine Ketones NEGATIVE mg/dL Urine Nitrite NEGATIVE mg/dL Urine Bilirubin NEGATIVE mg/dL Urine Urobilinogen NEGATIVE mg/dL Urine Leukocyte Esterase NEGATIVE Jose Rafael/ul Urine Hemoglobin NEGATIVE mg/dL Urine Glucose NEGATIVE mg/dL Urine Total Protein NEGATIVE mg/dl Salicylates Level < 1.0 mg/dl Acetaminophen Level < 10.0 ug/ml Ethyl Alcohol Level < 10.0 mg/dl Assessment and Plan Assessment/Diagnosis Diagnosis UNSPECIFIED PSYCHOSIS Recommendation/Plan Medication Management ZYPREXA 10 MG POQHS Discharge Disposition: Psychiatric inpatient Legal Status: Voluntary ANN DONALDSON MD Feb 02, 2019 16:36
[2019-02-02] MEDS: OLANZAPINE (ODT) 5 MG TAB ODT SCH (21:05)
[2019-02-03] MEDS: OLANZAPINE (ODT) 5 MG TAB ODT SCH (20:24)
[2019-02-04 03:10] VITALS: BP 115/69; PULSE 60; RESP 17
== END 2019-02-04 03:19 | disposition home or self-care (01) ==
LOC: E/R 10:56
DX: R42 Dizziness and giddiness (principal); I10 Essential (primary) hypertension; I25.10 Atherosclerotic heart disease of native coronary artery without angina pectoris; F17.210 Nicotine dependence, cigarettes, uncomplicated; F15.10 Other stimulant abuse, uncomplicated; R11.0 Nausea; F90.9 Attention-deficit hyperactivity disorder, unspecified type; Z59.0 Homelessness; Z79.01 Long term (current) use of anticoagulants
CPT/HCPCS: 36415; 71045; 80053; 80307; 81003; 83690; 84484; 85025; 85610; 93005; 96361; 96374; J2405; J7030; Z7502; Z7610

== ENCOUNTER 2019-02-06 15:15 | Emergency (ER) | payer MEDICAID ==
[~2019-02-06] VITALS: Ht 170.2 cm; Wt 59.5 kg
[~2019-02-06 15:15] MED LIST changes: +ATOR40TA68 PO; +CLOP75TA27 PO; -DOCU-144 PO; +FAMO20TA18 PO; +ONDA4TAB8 PO; -POLY17PO6 PO
[2019-02-06 15:27] VITALS: Ht 170.2 cm; Wt 59.5 kg
--- NOTE | 2019-02-06 16:34 | ERD ---
ER Documentation Chief Complaint Chief Complaint Body aches, difficulty urinating, dysuria, constipation X 6 days. HPI This is a 58-year-old male who presents for multiple complaints of body aches, painful urination, and constipation for the last 6 days patient was seen here on February 02, at that time he had similar presentation, and was cleared from medical standpoint, however he appeared to be exhibiting bizarre behavior, and ps ychiatry consulted, who recommended a voluntary admission. The patient denies fever, he denies chest pain or shortness of breath, he denies suicidal or homicidal ideations. ROS All systems reviewed and are negative except as per history of present illness. Medications Home Meds Reported Medications Famotidine* (Famotidine*) 20 Mg Tablet, 20 MG PO BID, #60 TAB 02/02/19 Atorvastatin* (Atorvastatin*) 40 Mg Tablet, 40 MG PO DAILY, #30 TAB 02/02/19 Clopidogrel Bisulfate (Clopidogrel) 75 Mg Tablet, 75 MG PO DAILY, #30 TAB 02/02/19 Discontinued Scripts Ondansetron Hcl* (Zofran*) 4 Mg Tablet, 4 MG PO Q8H PRN for NAUSEA AND/OR VOMITING, #30 TAB Prov:MICHELLE MARTIN MD 02/02/19 Docusate Sodium* (Colace*) 100 Mg Capsule, 100 MG PO TID, #30 CAP Prov:KERRY HUERTA PA-C 01/18/19 Polyethylene Glycol* (Miralax*) 17 Gm Powd.pack, 17 GM PO DAILY, #7 Prov:KERRY HUERTA PA-C 01/18/19 Allergies Allergies: Coded Allergies: No Known Allergy (Unverified , 02/06/19) PMhx/Soc History of Surgery: No Anesthesia Reaction: No Hx Neurological Disorder: No Hx Respiratory Disorders: No Hx Cardiac Disorders: Yes (Hypertension, hyperlipidemia, coronary artery disease) Hx Psychiatric Problems: No Hx Miscellaneous Medical Probl: Yes (Constipation, GERD) Hx Alcohol Use: Yes (occassional) Hx Substance Use: Yes (crystal meth) Hx Tobacco Use: Yes Physical Exam Vitals Vital Signs Date Temp Pulse Resp B/P (MAP) Pulse Ox O2 O2 Flow FiO2 Time Delivery Rate 02/06/19 98.0 82 18 161/95 97 15:27 (117) Physical Exam Const: Well-developed, well-nourished, nontoxic Head: Atraumatic Eyes: Normal Conjunctiva ENT: Normal External Ears, Nose and Mouth. Neck: Full range of motion. No meningismus. Resp: Clear to auscultation bilaterally Cardio: Regular rate and rhythm, no murmurs Abd: Soft, non tender, non distended, no rebound or guarding.. Normal bowel sounds Skin: No petechiae or rashes Back: No midline or flank tenderness Ext: No cyanosis, or edema Neur: Awake and alert Psych: Normal Mood and Affect Result Diagram: 02/06/19 1633 02/06/19 1633 Results 24 hrs Laboratory Tests Test 02/06/19 16:33 02/06/19 17:20 White Blood Count 8.6 10^3/ul Red Blood Count 4.89 10^6/ul Hemoglobin 15.0 g/dl Hematocrit 45.5 % Mean Corpuscular Volume 93.0 fl Mean Corpuscular Hemoglobin 30.7 pg Mean Corpuscular Hemoglobin Concent 33.0 g/dl Red Cell Distribution Width 11.9 % Platelet Count 236 10^3/UL Mean Platelet Volume 10.7 fl Immature Granulocytes % 0.200 % Neutrophils % 47.3 % Lymphocytes % 27.6 % Monocytes % 9.9 % Eosinophils % 14.1 % Basophils % 0.9 % Nucleated Red Blood Cells % 0.0 /100WBC Immature Granulocytes # 0.020 10^3/ul Neutrophils # 4.1 10^3/ul Lymphocytes # 2.4 10^3/ul Monocytes # 0.9 10^3/ul Eosinophils # 1.2 10^3/ul Basophils # 0.1 10^3/ul Nucleated Red Blood Cells # 0.0 10^3/ul Sodium Level 141 mmol/L Potassium Level 4.7 mmol/L Chloride Level 106 mmol/L Carbon Dioxide Level 29 mmol/L Anion Gap 6 Blood Urea Nitrogen 18 mg/dl Creatinine 0.63 mg/dl Est Glomerular Filtrat Rate mL/min > 60 mL/min Glucose Level 111 mg/dl Calcium Level 9.8 mg/dl Total Bilirubin 0.3 mg/dl Direct Bilirubin 0.00 mg/dl Indirect Bilirubin 0.3 mg/dl Aspartate Amino Transf (AST/SGOT) 37 IU/L Alanine Aminotransferase (ALT/SGPT) 39 IU/L Alkaline Phosphatase 101 IU/L Troponin I < 0.012 ng/ml Total Protein 7.4 g/dl Albumin 4.2 g/dl Globulin 3.20 g/dl Albumin/Globulin Ratio 1.31 Lipase 118 U/L Urine Color YELLOW Urine Clarity CLEAR Urine pH 6.0 Urine Specific [place] 1.011 Urine Ketones NEGATIVE mg/dL Urine Nitrite NEGATIVE mg/dL Urine Bilirubin NEGATIVE mg/dL Urine Urobilinogen NEGATIVE mg/dL Urine Leukocyte Esterase NEGATIVE Jose Rafael/ul Urine Hemoglobin NEGATIVE mg/dL Urine Glucose NEGATIVE mg/dL Urine Total Protein NEGATIVE mg/dl Procedures/MDM This is a 58-year-old male who presents for evaluation of generalized body aches, and discomfort when urinating, his urinalysis was negative, and his labs were overall unremarkable, there is been no major changes from previous. At t his point I feel the patient is stable for discharge home from medical standpoint. I addressed any psychiatric concerns with the patient, he denies suicidal or homicidal ideations, he is able to endorse a plan of care, he felt comfortable with discharge home, at discharge he was in no distress per EKG: Rate/Rhythm: Normal Sinus Rhythm QRS, ST, T-waves: No changes consistent w/ acute ischemia Impression: No evidence of ischemia or arrhythmia Departure Diagnosis: Primary Impression: Body aches Condition: Stable HOWIE PAYTON MD Feb 06, 2019 16:34
[2019-02-06 18:26] VITALS: BP 109/80; PULSE 74; RESP 18
== END 2019-02-06 18:15 | disposition home or self-care (01) ==
LOC: E/R 15:15
DX: R30.0 Dysuria (principal); K59.00 Constipation, unspecified; I10 Essential (primary) hypertension; I25.10 Atherosclerotic heart disease of native coronary artery without angina pectoris; Z79.01 Long term (current) use of anticoagulants; Z87.891 Personal history of nicotine dependence
CPT/HCPCS: 71045; 80053; 81003; 83690; 84484; 85025; 93005; Z7502

== ENCOUNTER 2019-02-09 19:37 | Emergency (ER) | payer MEDICAID ==
[~2019-02-09] VITALS: Ht 167.6 cm; Wt 60.4 kg
[~2019-02-09 19:37] MED LIST changes: -ONDA4TAB8 PO
[2019-02-09 19:54] VITALS: Ht 167.6 cm; Wt 60.4 kg
--- NOTE | 2019-02-10 01:29 | ERD ---
ER Documentation Chief Complaint Chief Complaint BILAT LEG PAIN, BUMP ON R FOOT HPI During the patient's encounter translation services were utilized Language: Kittitian Source: In person 58-year-old homeless gentleman who presents to the emergency room with pain to the entirety of the plantar surface of his bilateral feet. He states that he is walking around a significant amount. The pain is moderate, throbbing without evidence of fevers redness or swelling. No recent trauma or injury. Patient otherwise has no complaints. He denies any headache chest pain or shortness of breath, no fevers or chills. ROS All systems reviewed and are negative except as per history of present illness. Medications Home Meds Reported Medications Famotidine* (Famotidine*) 20 Mg Tablet, 20 MG PO BID, #60 TAB 02/02/19 Atorvastatin* (Atorvastatin*) 40 Mg Tablet, 40 MG PO DAILY, #30 TAB 02/02/19 Clopidogrel Bisulfate (Clopidogrel) 75 Mg Tablet, 75 MG PO DAILY, #30 TAB 02/02/19 Discontinued Scripts Ondansetron Hcl* (Zofran*) 4 Mg Tablet, 4 MG PO Q8H PRN for NAUSEA AND/OR VOMITING, #30 TAB Prov:MICHELLE MARTIN MD 02/02/19 Allergies Allergies: Coded Allergies: No Known Allergy (Unverified , 02/06/19) PMhx/Soc History of Surgery: No Anesthesia Reaction: No Hx Neurological Disorder: No Hx Respiratory Disorders: No Hx Cardiac Disorders: Yes (Hypertension, hyperlipidemia, coronary artery disease) Hx Psychiatric Problems: No Hx Miscellaneous Medical Probl: Yes (Constipation, GERD) Hx Alcohol Use: Yes (occassional) Hx Substance Use: Yes (crystal meth) Hx Tobacco Use: Yes Smoking Status: Never smoker FmHx Family History: No diabetes Physical Exam Vitals Vital Signs Date Temp Pulse Resp B/P (MAP) Pulse Ox O2 O2 Flow FiO2 Time Delivery Rate 02/10/19 36.8 01:19 02/10/19 98.2 73 18 134/66 100 01:10 (88) 02/09/19 98.2 60 18 120/75 100 19:54 (90) Physical Exam General: Well developed, well nourished, no acute distress Head: Normocephalic, atraumatic. Eyes: EOM intact ENT: Moist mucous membranes Neck: Full ROM Respiratory: No respiratory distress Cardiovascular: Well perfused distally Abdominal: Nondistended : Deferred MSK: No edema, no unilateral swelling, 5/5 strength. The plantar surface of the bilateral feet has normal calluses, no evidence of focal bony abnormality. Patient has 2+ dorsalis pedis and posterior tibial pulses of the bilateral feet. No unilateral swelling. Negative Homans sign bilaterally. Neurologic: Alert and oriented, moving all extremities, normal speech, steady gait Skin: No rash Psych: Normal mood Results 24 hrs Laboratory Tests Test 02/10/19 01:15 Bedside Urine pH (LAB) 6.0 Bedside Urine Protein (LAB) Trace Bedside Urine Glucose (UA) Negative Bedside Urine Ketones (LAB) Negative Bedside Urine Blood Trace-intact Bedside Urine Nitrite (LAB) Negative Bedside Urine Leukocyte Esterase (L Negative Current Medications Medications Dose Sig/Estrella Start Time Status Last (Trade) Ordered Route PRN Stop Time Admin Dose Reason Admin Ibuprofen 800 mg ONCE ONCE 02/10/19 02/10/19 (Motrin) PO 01:30 02/10/19 01:19 01:31 Procedures/MDM Patient has no signs or symptoms concerning for emergent medical condition. Foot pain is likely secondary to walking a significant amount. No evidence of bony fracture abnormality, vascular occlusion or DVT. The patient was given reassurance, nonsteroidal anti-inflammatory. He was given food and drink. The patient wishes to speak to a social sciences lecturer. The patient has been medically cleared he is not a danger to himself or others. Homeless discharge process has been initiated and handed off to the nursing staff. The patient does not have an identifiable emergent medical condition that warrants inpatient hospitalization at this time. The patient is deemed safe for discharge with outpatient follow-up. We discussed follow up with the patient's primary care doctor within 24 to 48 hours as needed. We also discussed return to the emergency room for worsening symptoms or worsening condition. Outpatient referral: None required Discharge Medications: None required Departure Diagnosis: Primary Impression: Foot pain, bilateral Additional Impression: Homelessness Condition: Good Patient Instructions: R.I.C.E. Referrals: [facility] Usted se prater hecho un examen mdico de control que le indica que no est en ben condicin que requiera tratamiento urgente en el Departamento de Emergencia. Un estudio ms profundo y el tratamiento de ramirez condicin pueden esperar sin ningn riesgo hasta que usted sea atendida/o en el consultorio de ramirez mdico o ben clnica. Es responsabilidad suya arreglar ben milagros para el seguimiento del marjorie. MANEJO DE CONDICIONES NO URGENTES EN EL FUTURO 1) Si usted tiene un mdico de atencin primaria: Usted debera llamar a ramirez mdico de atencin primaria antes de venir al departamento de emergencia. Despus de las horas de consultorio, ramirez doctor o ramirez asociado/a est disponible por telfono. El mdico o enfermero de ramone en el servicio telefnico puede asesorarle por che medio para atender el problema, o marjorie contrario se puede programar ben milagros. 2) Si usted no tiene un mdico de atencin primaria: Llame al mdico o clnica de referencia que aparece abajo chip las horas de consultorio para hacer ben milagros para que le vean. CLINICAS: [facility] [phone] [facility] [phone] [address] [facility]. [facility] [phone] [address] [facility]. [facility] [phone] [facility]. [place] [id number] [phone] [facility]. [phone] [address] [facility]. [facility] () Usted se prater hecho un examen mdico de control que le indica que no est en ben condicin que requiera tratamiento urgente en el Departamento de Emergencia. Un estudio ms profundo y el tratamiento de ramirez condicin pueden esperar sin ningn riesgo hasta que usted sea atendida/o en el consultorio de ramirez mdico o ben clnica. Es responsabilidad suya arreglar ben milagros para el seguimiento del marjorie. MANEJO DE CONDICIONES NO URGENTES EN EL FUTURO 1) Si usted tiene un mdico de atencin primaria: Usted debera llamar a ramirez mdico de atencin primaria antes de venir al departamento de emergencia. Despus de las horas de consultorio, ramirez doctor o ramirez asociado/a est disponible por telfono. El mdico o enfermero de ramone en el servicio telefnico puede asesorarle por che medio para atender el problema, o marjorie contrario se puede programar ben milagros. 2) Si usted no tiene un mdico de atencin primaria: Llame al mdico o condado institucions de referencia que aparece abajo chip las horas de consultorio para hacer ben milagros para que le vean. SI USTED NO PUEDE PAGAR PARA WES UN MEDICO puede ir a: [facility] [address] [place] [address] [facility] [address] [place] [address] [facility] [address] [place] [address] [place] [facility] [address] [place], [place] [id number] Additional Instructions: Llame al doctor nombrado abajo (Referral Sources) MAANA y rome ben MILAGROS PARA DENTRO DE BEN SEMANA. Dgale a la secretaria que nosotros le instruimos hacer esta milagros.Avise o llame si ramirez condicin se empeora antes de la milagros. SPENCER HURTADO MD February 10, 2019 01:29
[2019-02-10] MEDS ORDERED: IBUPROFEN 800 MG TAB PO ONE (01:30)
[2019-02-10 05:58] VITALS: BP 92/74; PULSE 54; RESP 16
== END 2019-02-10 10:42 | disposition home or self-care (01) ==
LOC: E/R 19:37
DX: M79.604 Pain in right leg (principal); I10 Essential (primary) hypertension; I25.10 Atherosclerotic heart disease of native coronary artery without angina pectoris; M79.605 Pain in left leg; Z59.0 Homelessness
CPT/HCPCS: 81003; Z7502; Z7610; 99282

== ENCOUNTER 2019-02-13 13:29 | Emergency (ER) | payer MEDICAID ==
[~2019-02-13] VITALS: Ht 170.2 cm; Wt 58.1 kg
[2019-02-13 13:32] VITALS: Ht 170.2 cm; Wt 58.1 kg
[2019-02-13] MEDS ORDERED: SOD CHLORIDE 0.9% 1,000 ML IV STA (14:19)
--- NOTE | 2019-02-13 16:28 | ERD ---
ER Documentation Chief Complaint Chief Complaint dizziness x 1 year, was seen here 3 days ago HPI This is a 58-year-old male who says that he feels dizzy. He says that he ate some bread that other people had eaten and after he did so he felt dizzy. The patient is homeless. He says that he has not been drinking much water but is been eating. No headache chest pain shortness of breath cough or GI symptoms. No neurological symptoms. He says he just feels a little bit dizzy when he stands up ROS All systems reviewed and are negative except as per history of present illness. Medications Home Meds Reported Medications Famotidine* (Famotidine*) 20 Mg Tablet, 20 MG PO BID, #60 TAB 02/02/19 Atorvastatin* (Atorvastatin*) 40 Mg Tablet, 40 MG PO DAILY, #30 TAB 02/02/19 Clopidogrel Bisulfate (Clopidogrel) 75 Mg Tablet, 75 MG PO DAILY, #30 TAB 02/02/19 Discontinued Scripts Ondansetron Hcl* (Zofran*) 4 Mg Tablet, 4 MG PO Q8H PRN for NAUSEA AND/OR VOMITING, #30 TAB Prov:MICHELLE MARTIN MD 02/02/19 Allergies Allergies: Coded Allergies: No Known Allergy (Unverified , 02/13/19) PMhx/Soc History of Surgery: No Anesthesia Reaction: No Hx Neurological Disorder: No Hx Respiratory Disorders: No Hx Cardiac Disorders: Yes (Hypertension, hyperlipidemia, coronary artery disease) Hx Psychiatric Problems: No Hx Miscellaneous Medical Probl: Yes (Constipation, GERD) Hx Alcohol Use: Yes (occassional) Hx Substance Use: Yes (crystal meth) Hx Tobacco Use: Yes Smoking Status: Current every day smoker FmHx Family History: No coronary disease Physical Exam Vitals Vital Signs Date Temp Pulse Resp B/P (MAP) Pulse Ox O2 O2 Flow FiO2 Time Delivery Rate 02/13/19 98.3 100 18 139/100 98 13:32 (113) Physical Exam Const: Well-developed, well-nourished Head: Atraumatic, normocephalic Eyes: Normal Conjunctiva, PERRLA, EOMI, normal sclera, no nystagmus ENT: Normal External Ears, Nose and Mouth, moist mucus membranes. Neck: Full range of motion. No meningismus, no lymphadenopathy. Resp: Clear to auscultation bilaterally, no wheezing, rhonchi, rales Cardio: Regular rate and rhythm, no murmurs, S1 S2 present Abd: Soft, non tender x 4, non distended. Normal bowel sounds, no guarding or rebound, no pulsitile abdominal masses or bruits Skin: No petechiae or rashes, no ecchymosis , no maculopapular rash Back: No midline or flank tenderness Ext: No cyanosis, or edema, FROM x 4, normal inspection, neurovascularly intact x 4 Neur: Awake and alert, STR 5/5 x 4, sensation intact x 4, no focal findings, cerebellum intact Psych: Normal Mood and Affect Result Diagram: 02/13/19 1423 02/13/19 1423 Results 24 hrs Laboratory Tests Test 02/13/19 14:23 White Blood Count 7.8 10^3/ul Red Blood Count 4.74 10^6/ul Hemoglobin 14.6 g/dl Hematocrit 43.1 % Mean Corpuscular Volume 90.9 fl Mean Corpuscular Hemoglobin 30.8 pg Mean Corpuscular Hemoglobin Concent 33.9 g/dl Red Cell Distribution Width 11.9 % Platelet Count 225 10^3/UL Mean Platelet Volume 10.7 fl Immature Granulocytes % 0.300 % Neutrophils % 45.3 % Lymphocytes % 32.2 % Monocytes % 11.7 % Eosinophils % 9.9 % Basophils % 0.6 % Nucleated Red Blood Cells % 0.0 /100WBC Immature Granulocytes # 0.020 10^3/ul Neutrophils # 3.5 10^3/ul Lymphocytes # 2.5 10^3/ul Monocytes # 0.9 10^3/ul Eosinophils # 0.8 10^3/ul Basophils # 0.1 10^3/ul Nucleated Red Blood Cells # 0.0 10^3/ul Sodium Level 140 mmol/L Potassium Level 3.9 mmol/L Chloride Level 103 mmol/L Carbon Dioxide Level 30 mmol/L Anion Gap 7 Blood Urea Nitrogen 11 mg/dl Creatinine 0.66 mg/dl Est Glomerular Filtrat Rate mL/min > 60 mL/min Glucose Level 109 mg/dl Calcium Level 10.0 mg/dl Total Bilirubin 0.9 mg/dl Direct Bilirubin 0.00 mg/dl Indirect Bilirubin 0.9 mg/dl Aspartate Amino Transf (AST/SGOT) 49 IU/L Alanine Aminotransferase (ALT/SGPT) 43 IU/L Alkaline Phosphatase 96 IU/L Total Protein 7.5 g/dl Albumin 4.4 g/dl Globulin 3.10 g/dl Albumin/Globulin Ratio 1.41 Current Medications Medications Dose Sig/Estrella Start Time Status Last (Trade) Ordered Route PRN Stop Time Admin Dose Reason Admin Sodium 1,000 ml @ Q1H STAT 02/13/19 DC 02/13/19 Chloride 1,000 mls/hr IV 14:19 02/13/19 14:32 15:18 Procedures/MDM Patient received 1 L of normal saline he feels better afterwards. He may just need some volume. His labs look relatively stable. Will discharge home Patient feels much better at this time, and vital signs are normal, symptoms have improved. I did give strict instructions to return to the ED if symptoms continue or worsen, patient will otherwise follow-up with primary care miguel n. Patient understood instructions and agreed to plan. Disclaimer: Inadvertent spelling and grammatical errors are likely due to EHR/dictation software use and do not reflect on the overall quality of patient care. Also, please note that the electronic time recorded on this note does not necessarily reflect the actual time of the patient encounter. Departure Diagnosis: Primary Impression: Dizziness Condition: Stable JASIEL PAZ DO February 13, 2019 16:28
[2019-02-13 16:39] VITALS: BP 142/78; PULSE 76; RESP 18
== END 2019-02-13 16:41 | disposition home or self-care (01) ==
LOC: E/R 13:29
DX: R42 Dizziness and giddiness (principal); I10 Essential (primary) hypertension; I25.10 Atherosclerotic heart disease of native coronary artery without angina pectoris; F17.210 Nicotine dependence, cigarettes, uncomplicated; Z79.01 Long term (current) use of anticoagulants
CPT/HCPCS: 36415; 80053; 85025; 96360; J7030; Z7502; 93005

== ENCOUNTER 2019-02-16 00:11 | Emergency (ER) | payer MEDICAID ==
[~2019-02-16] VITALS: Ht 157.5 cm; Wt 61.4 kg
[2019-02-16 00:15] VITALS: Ht 157.5 cm; Wt 61.4 kg
[2019-02-16] MEDS ORDERED: ASPIRIN 325 MG TAB PO STA (09:17)
[2019-02-16] MEDS ORDERED: SOD CHLORIDE 0.9% 1,000 ML IV STA (10:23)
[2019-02-16] MEDS ORDERED: KETOROLAC 30 MG INJ IV STA (10:23)
--- NOTE | 2019-02-16 10:46 | ERD ---
ER Documentation Chief Complaint Chief Complaint CP X 1.5 yrs, body aches HPI This is a 58-year-old male with a past medical history of coronary artery disease. The patient had an ST segment elevation in June 2018 and is on Plavix. Patient states his been compliant with his medications. He presents to the emergency department today complaining of chest pain and body aches for 1- 1/2 years. The patient has a history of alcohol abuse and crystal meth use. He states he has not used alcohol for roughly 1 day. He cannot remember the last time that he used crystal. He states that the chest pain is a dull achy sensation. There is no alleviating or exacerbating factors. He denies any fever shaking or chills. Has no shortness of breath. He denies headache. He denies any abdominal pain. He denies any hemoptysis hematemesis or melanotic stools. ROS All systems reviewed and are negative except as per history of present illness. Medications Home Meds Reported Medications Famotidine* (Famotidine*) 20 Mg Tablet, 20 MG PO BID, #60 TAB 02/02/19 Atorvastatin* (Atorvastatin*) 40 Mg Tablet, 40 MG PO DAILY, #30 TAB 02/02/19 Clopidogrel Bisulfate (Clopidogrel) 75 Mg Tablet, 75 MG PO DAILY, #30 TAB 02/02/19 Allergies Allergies: Coded Allergies: No Known Allergy (Unverified , 02/16/19) PMhx/Soc History of Surgery: No Anesthesia Reaction: No Hx Neurological Disorder: No Hx Respiratory Disorders: No Hx Cardiac Disorders: Yes (Hypertension, hyperlipidemia, coronary artery disease) Hx Psychiatric Problems: No Hx Miscellaneous Medical Probl: Yes (Constipation, GERD) Hx Alcohol Use: Yes (occassional) Hx Substance Use: Yes (crystal meth) Hx Tobacco Use: Yes Smoking Status: Current every day smoker Physical Exam Vitals Vital Signs Date Temp Pulse Resp B/P (MAP) Pulse Ox O2 O2 Flow FiO2 Time Delivery Rate 02/16/19 98.0 56 20 118/87 100 Room Air 09:37 (97) 02/16/19 97.4 82 18 146/85 98 00:15 (105) Physical Exam Constitutional:Well-developed. Well-nourished. HEENT:Normocephalic. Atraumatic.Pupils were equal round reactive to light. Moist mucous membranes.No tonsillar exudates. Poor oral dentition Neck: No nuchal rigidity. No lymphadenopathy. No posterior cervical spine tenderness or step-offs. Respiratory: Not using accessory muscles of respiration.Lungs were clear to auscultation bilaterally. No rhonchi. No rales. No wheezing. Cardiovascular: Regular rate regular rhythm.No murmurs. No rubs were appreciated.S1, S2 normal. Distal pulses are palpable 2+ bilaterally. Bilateral reproducible chest wall tenderness with no crepitus no ecchymosis no flail chest GI: Abdomen was soft. Nontender. Non Distended. No pulsatile abdominal masses or bruits. No rebound. No guarding. Bowel sounds were present and normal. Muscle skeletal: Full range of motion of both the upper and lower extremities bilaterally.Normal muscle tone.No assymetrical calf tenderness or swelling. Skin: No petechia, no purpura. No lesions on the palms or the soles of the feet. No maculopapular rash. NEURO: Patient was alert, awake, orientated x3.No facial droop. Gait observed and normal with no ataxia.Speech had regular rate and rhythm. No focal neurological deficits. Result Diagram: 02/16/1993202/16/19932 Results 24 hrs Laboratory Tests Test 02/16/19 09:32 02/16/19 09:33 02/16/19 10:01 Prothrombin Time 11.5 Sec Prothrombin Time Ratio 0.9 INR International Normalized Ratio 0.83 Activated Partial Thromboplast Time 27.0 Sec White Blood Count 7.8 10^3/ul Red Blood Count 4.42 10^6/ul Hemoglobin 13.8 g/dl Hematocrit 41.0 % Mean Corpuscular Volume 92.8 fl Mean Corpuscular Hemoglobin 31.2 pg Mean Corpuscular Hemoglobin Concent 33.7 g/dl Red Cell Distribution Width 11.9 % Platelet Count 234 10^3/UL Mean Platelet Volume 10.9 fl Immature Granulocytes % 0.100 % Neutrophils % 50.0 % Lymphocytes % 29.7 % Monocytes % 9.1 % Eosinophils % 10.6 % Basophils % 0.5 % Nucleated Red Blood Cells % 0.0 /100WBC Immature Granulocytes # 0.010 10^3/ul Neutrophils # 3.9 10^3/ul Lymphocytes # 2.3 10^3/ul Monocytes # 0.7 10^3/ul Eosinophils # 0.8 10^3/ul Basophils # 0.0 10^3/ul Nucleated Red Blood Cells # 0.0 10^3/ul Sodium Level 142 mmol/L Potassium Level 4.0 mmol/L Chloride Level 105 mmol/L Carbon Dioxide Level 29 mmol/L Anion Gap 8 Blood Urea Nitrogen 16 mg/dl Creatinine 0.59 mg/dl Est Glomerular Filtrat Rate mL/min > 60 mL/min Glucose Level 161 mg/dl Calcium Level 9.2 mg/dl Total Bilirubin 0.4 mg/dl Direct Bilirubin 0.00 mg/dl Indirect Bilirubin 0.4 mg/dl Aspartate Amino Transf (AST/SGOT) 37 IU/L Alanine Aminotransferase (ALT/SGPT) 37 IU/L Alkaline Phosphatase 91 IU/L Creatine Kinase 272 IU/L Creatine Kinase Index 1.1 Creatinine Kinase MB (Mass) 2.97 ng/ml Troponin I < 0.012 ng/ml B-Type Natriuretic Peptide 25 PG/ML Total Protein 6.9 g/dl Albumin 4.0 g/dl Globulin 2.90 g/dl Albumin/Globulin Ratio 1.37 Ethyl Alcohol Level < 10.0 mg/dl Current Medications Medications Dose Sig/Estrella Start Time Status Last (Trade) Ordered Route PRN Stop Time Admin Dose Reason Admin Aspirin 325 mg ONCE STAT 02/16/19 DC 02/16/19 (Aspirin) PO 09:17 02/16/19 09:44 09:18 Sodium 1,000 ml @ Q1H STAT 02/16/19 Chloride 1,000 mls/hr IV 10:23 02/16/19 11:22 Ketorolac 30 mg ONCE STAT 02/16/19 DC Tromethamine IV 10:23 02/16/19 (Toradol) 10:29 Procedures/MDM The patient presented to the emergency department with chest pain. My clinical evaluation and workup was to distinguish minor causes of chest pain from acute life threatening conditions such as myocardial infarction, pulmonary embolism, aortic dissection, esophageal rupture, cardiac tamponade. The patient was placed on a cardiac cath lab radiology technologist and continuous pulse oximetry. IV access established by nursing staff. The patient was given 325 mg of aspirin. This did not improve his pain as he was complaining of diffuse myalgias. Patient no electrolyte abnormalities. There is no leukocytosis. The patient was given Toradol as I did feel this was a result of myalgias versus myocardial ischemia. 12 Lead EKG tracing ordered and reviewed by myself showed: Normal sinus rhythm of 72 bpm and no arrhythmia. CA interval normal. QRS duration normal. No ST segment elevation No ST segment depression. No changes consistent with acute ischemia. The patient serum ethanol was nondetected. He was given Ativan to prevent alcohol withdrawal seizures. The patient was refusing to provide a urinalysis therefore was unable to obtain a urine drug screen as I could not rule out amphetamine abuse at this time. However I did not feel the patient required admission at this time for serial twelve-lead EKG tracings and cardiac set of enzymes as the pain he states is been present for over 1 year. The patient was discharged home in fair condition. They were instructed to return to the emergency department at any time if there was any worsening of their condition. The patient stated they would follow up with their PCP in the next 24-48 hours to initiate a suitable medication regimen under the care of their PCP as well as to allow their PCP to monitor any drug reactions. The patient was discharged home with prescriptions after they gave informed consent to the new medication. They were also fully informed by myself on the adverse effects and adverse drug interactions in order to provide adequate safeguards to prevent possible adverse reactions to medications. Departure Diagnosis: Primary Impression: Myalgia Additional Impression: Costochondritis Condition: TAHIR Leone MD February 16, 2019 10:45
[2019-02-16] MEDS ORDERED: LORAZEPAM 2 MG INJ IV ONE (11:00)
[2019-02-16 13:05] VITALS: BP 109/81; PULSE 57; RESP 18
== END 2019-02-16 13:05 | disposition home or self-care (01) ==
LOC: E/R 00:11
DX: M79.10 Myalgia, unspecified site (principal); I25.10 Atherosclerotic heart disease of native coronary artery without angina pectoris; I10 Essential (primary) hypertension; F17.210 Nicotine dependence, cigarettes, uncomplicated; M94.0 Chondrocostal junction syndrome [Tietze]; Z79.01 Long term (current) use of anticoagulants
CPT/HCPCS: 71045; 80053; 80307; 82550; 82553; 83880; 84484; 85025; 85610; 85730; 93005; 96361; 96374; 96375; J1885; J2060; J7030; Z7502; Z7610

== ENCOUNTER 2019-02-18 23:39 | Emergency (ER) | payer MEDICAID ==
[~2019-02-18] VITALS: Ht 170.2 cm; Wt 61.0 kg
[2019-02-18 23:54] VITALS: Ht 170.2 cm; Wt 61.0 kg
[2019-02-19] MEDS ORDERED: BELLADONNA/PHENOBARBITAL TAB PO STA (00:18)
[2019-02-19] MEDS ORDERED: LIDOCAINE/MYLANTA 40 ML BTL PO STA (00:18)
[2019-02-19] MEDS ORDERED: OMEP40CA6 PO (01:26)
--- NOTE | 2019-02-19 01:28 | ERD ---
ER Documentation Chief Complaint Chief Complaint ABDOMINAL PAIN X TODAY. NO N/V/D. HPI This is a 58-year-old male who is homeless and known to me he says he is here because his stomach hurts. Said he has some varying locations of pain but right now it is in the mid abdominal region in the upper area that says is burning. He says it brown all over. Denies any chest pain shortness of breath denies nausea vomiting diarrhea. The patient was seen here twice this week. ROS All systems reviewed and are negative except as per history of present illness. Medications Home Meds Active Scripts Omeprazole* (Omeprazole*) 40 Mg Capsule., 40 MG PO DAILY, #10 CAP Prov:JASIEL PAZ DO 02/19/19 Reported Medications Famotidine* (Famotidine*) 20 Mg Tablet, 20 MG PO BID, #60 TAB 02/02/19 Atorvastatin* (Atorvastatin*) 40 Mg Tablet, 40 MG PO DAILY, #30 TAB 02/02/19 Clopidogrel Bisulfate (Clopidogrel) 75 Mg Tablet, 75 MG PO DAILY, #30 TAB 02/02/19 Allergies Allergies: Coded Allergies: No Known Allergy (Unverified , 02/16/19) PMhx/Soc History of Surgery: No Anesthesia Reaction: No Hx Neurological Disorder: No Hx Respiratory Disorders: No Hx Cardiac Disorders: Yes (Hypertension, hyperlipidemia, coronary artery disease) Hx Psychiatric Problems: No Hx Miscellaneous Medical Probl: Yes (Constipation, GERD) Hx Alcohol Use: Yes (occassional) Hx Substance Use: Yes (crystal meth) Hx Tobacco Use: Yes FmHx Family History: No coronary disease Physical Exam Vitals Vital Signs Date Temp Pulse Resp B/P (MAP) Pulse Ox O2 O2 Flow FiO2 Time Delivery Rate 02/18/19 97.9 65 16 130/74 97 23:54 (92) Physical Exam Const: Well-developed, well-nourished Head: Atraumatic, normocephalic Eyes: Normal Conjunctiva, PERRLA, EOMI, normal sclera, no nystagmus ENT: Normal External Ears, Nose and Mouth, moist mucus membranes. Neck: Full range of motion. No meningismus, no lymphadenopathy. Resp: Clear to auscultation bilaterally, no wheezing, rhonchi, rales Cardio: Regular rate and rhythm, no murmurs, S1 S2 present Abd: Soft, non tender x 4, non distended. Normal bowel sounds, no guarding or rebound, no pulsitile abdominal masses or bruits Skin: No petechiae or rashes, no ecchymosis , no maculopapular rash Back: No midline or flank tenderness Ext: No cyanosis, or edema, FROM x 4, normal inspection, neurovascularly intact x 4 Neur: Awake and alert, STR 5/5 x 4, sensation intact x 4, no focal findings, cerebellum intact Psych: Normal Mood and Affect Results 24 hrs Current Medications Medications Dose Sig/Estrella Start Time Status Last (Trade) Ordered Route PRN Stop Time Admin Dose Reason Admin 40 ml ONCE STAT 02/19/19 DC 02/19/19 Miscellaneous PO 00:18 00:34 Medication 02/19/19 00:19 (Gi Cocktail (2)) Belladonna/ 2 tab ONCE STAT 02/19/19 DC 02/19/19 Phenobarbital PO 00:18 00:34 () 02/19/19 00:19 Departure Diagnosis: Primary Impression: Dyspepsia Condition: Stable Patient Instructions: Gastritis Vs. Ulcer JASIEL PAZ DO February 19, 2019 01:28
[2019-02-19 01:36] VITALS: BP 122/74; PULSE 53; RESP 14
== END 2019-02-19 01:38 | disposition home or self-care (01) ==
LOC: E/R 23:39
DX: R10.13 Epigastric pain (principal); I10 Essential (primary) hypertension; I25.10 Atherosclerotic heart disease of native coronary artery without angina pectoris; Z87.891 Personal history of nicotine dependence; Z79.01 Long term (current) use of anticoagulants
CPT/HCPCS: Z7502; Z7610; 99283

== ENCOUNTER 2019-02-19 23:40 | Emergency (ER) | payer MEDICAID ==
[~2019-02-19] VITALS: Wt 60.8 kg
[~2019-02-19 23:40] MED LIST changes: +OMEP40CA6 PO
[2019-02-20] MEDS ORDERED: IBUPROFEN 200 MG TAB PO ONE (03:00)
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
[2019-02-20 04:46] VITALS: BP 103/74; PULSE 51; RESP 16
== END 2019-02-20 04:47 | disposition home or self-care (01) ==
LOC: E/R 23:40
DX: S09.90XA Unspecified injury of head, initial encounter (principal); I10 Essential (primary) hypertension; I25.10 Atherosclerotic heart disease of native coronary artery without angina pectoris; S80.11XA Contusion of right lower leg, initial encounter; S19.9XXA Unspecified injury of neck, initial encounter; F17.210 Nicotine dependence, cigarettes, uncomplicated; Y04.2XXA Assault by strike against or bumped into by another person, initial encounter; Z04.71 Encounter for examination and observation following alleged adult physical abuse; Z79.01 Long term (current) use of anticoagulants
CPT/HCPCS: 70450; 72125; Z7502; Z7610

== ENCOUNTER 2019-03-02 12:09 | Emergency (ER) | payer MEDICAID ==
[~2019-03-02] VITALS: Ht 167.6 cm; Wt 62.0 kg
[2019-03-02 12:29] VITALS: Ht 167.6 cm; Wt 62.0 kg
--- NOTE | 2019-03-02 12:48 | EN ---
Date/Time of Note Date/Time of Note DATE: 03/02/19 TIME: 12:47 ER Progress Note MSE in ED 3. 58-year-old male with pain in right testicle for the last 3 days. Denies any recent trauma, fevers, vomiting. ALEJANDRO PIEDRA MD March 02, 2019 12:48
[2019-03-02] MEDS ORDERED: IBUP-1561 PO (15:57)
[2019-03-02] MEDS ORDERED: ACET-141 PO (15:57)
--- NOTE | 2019-03-02 15:59 | ERD ---
ER Documentation Chief Complaint Chief Complaint RIGHT TESTICICLE PAIN & SWELLING X 2 DAYS ROS All systems reviewed and are negative except as per history of present illness. Medications Home Meds Active Scripts Ibuprofen* (Motrin*) 400 Mg Tab, 400 MG PO Q6H PRN for PAIN AND OR ELEVATED TEMP, #30 TAB Prov:FLORIN GARCIA DO 03/02/19 Acetaminophen* (Acetaminophen*) 500 MG Extra Strength Tablet, 500 MG PO Q4H PRN for PAIN AND OR ELEVATED TEMP, #30 TAB Prov:FLORIN GARCIA DO 03/02/19 Allergies Allergies: Coded Allergies: No Known Allergy (Unverified , 02/20/19) PMhx/Soc Medical and Surgical Hx: pt denies Medical Hx, pt denies Surgical Hx History of Surgery: No Anesthesia Reaction: No Hx Neurological Disorder: No Hx Respiratory Disorders: No Hx Cardiac Disorders: No Hx Psychiatric Problems: No Hx Miscellaneous Medical Probl: No Hx Alcohol Use: No Hx Substance Use: No Hx Tobacco Use: No Smoking Status: Former smoker Physical Exam Vitals Vital Signs Date Temp Pulse Resp B/P (MAP) Pulse Ox O2 O2 Flow FiO2 Time Delivery Rate 03/02/19 98.5 70 18 127/75 100 12:29 (92) Physical Exam Const: No acute distress Head: Atraumatic Eyes: Normal Conjunctiva ENT: Normal External Ears, Nose and Mouth. Neck: Full range of motion. No meningismus. Resp: Clear to auscultation bilaterally Cardio: Regular rate and rhythm, no murmurs Abd: Soft, non tender, non distended. Normal bowel sounds Skin: No petechiae or rashes Back: No midline or flank tenderness Ext: No cyanosis, or edema Neur: Awake and alert Psych: Normal Mood and Affect Results 24 hrs Laboratory Tests Test 03/02/19 13:55 Urine Color COLORLESS Urine Clarity CLEAR Urine pH 6.0 Urine Specific [place] 1.005 Urine Ketones NEGATIVE mg/dL Urine Nitrite NEGATIVE mg/dL Urine Bilirubin NEGATIVE mg/dL Urine Urobilinogen NEGATIVE mg/dL Urine Leukocyte Esterase NEGATIVE Jose Rafael/ul Urine Hemoglobin NEGATIVE mg/dL Urine Glucose NEGATIVE mg/dL Urine Total Protein NEGATIVE mg/dl Departure Diagnosis: Primary Impression: Pain of male genitalia Condition: Fair Patient Instructions: Hydrocele, Type Not Specified Referrals: [facility] YOU HAVE RECEIVED A MEDICAL SCREENING EXAM AND THE RESULTS INDICATE THAT YOU DO NOT HAVE A CONDITION THAT REQUIRES URGENT TREATMENT IN THE EMERGENCY DEPARTMENT. FURTHER EVALUATION AND TREATMENT OF YOUR CONDITION CAN WAIT UNTIL YOU ARE SEEN IN YOUR DOCTORS OFFICE WITHIN THE NEXT 1-2 DAYS. IT IS YOUR RESPONSIBILITY TO MAKE AN APPOINTMENT FOR FOLOW-UP CARE. IF YOU HAVE A PRIMARY DOCTOR --you should call your primary doctor and schedule an appointment IF YOU DO NOT HAVE A PRIMARY DOCTOR YOU CAN CALL OUR PHYSICIAN REFERRAL HOTLINE AT IF YOU CAN NOT AFFORD TO SEE A PHYSICIAN YOU CAN CHOSE FROM THE FOLLOWING [facility] [address] [facility] [address] [facility] [address] [facility] [address] [facility] [address] [facility] [facility] [address] Additional Instructions: Llame al doctor MAANA y rome ben MILAGROS PARA DENTRO DE 1-2 ROSS.Dgale a la secretaria que nosotros le instruimos hacer esta milagros.Avise o llame si ramirez condicin se empeora antes de la milagros. Regresa aqui si peor o no mejor. FLORIN GARCIA DO March 02, 2019 15:59
[2019-03-02 16:10] VITALS: BP 118/67; PULSE 72; RESP 19
== END 2019-03-02 16:10 | disposition home or self-care (01) ==
LOC: FTE 12:09
DX: N50.811 Right testicular pain (principal); Z87.891 Personal history of nicotine dependence
CPT/HCPCS: 76870; 81003; Z7502

== ENCOUNTER 2019-03-04 10:32 | Emergency (ER) | payer MEDICAID ==
[~2019-03-04] VITALS: Wt 64.0 kg
[~2019-03-04 10:32] MED LIST changes: +ACET-141 PO; -ATOR40TA68 PO; -CLOP75TA27 PO; -FAMO20TA18 PO; +IBUP-1561 PO; -OMEP40CA6 PO
[2019-03-04] MEDS ORDERED: ONDANSETRON 4 MG INJ IV STA (11:36)
[2019-03-04] MEDS ORDERED: morphine 4 MG/ML VIAL IV STA (11:36)
[2019-03-04] MEDS ORDERED: FAMO20TA18 PO (12:15)
[2019-03-04] MEDS ORDERED: CLOP75TA19 PO (12:15)
[2019-03-04] MEDS ORDERED: ATOR40TA68 PO (12:15)
[2019-03-04] MEDS ORDERED: SOD CHLORIDE 0.9% 100 ML ONE (12:35)
[2019-03-04] MEDS ORDERED: IOHEXOL 300MG/ML 150 ML BTL ONE (12:35)
[2019-03-04] MEDS ORDERED: TRAM50TA2 PO (13:11)
--- NOTE | 2019-03-04 13:11 | ERD ---
ER Documentation Chief Complaint Chief Complaint AP, RIGHT TESTICLE PAIN HPI This is a 58-year-old male well-known to me is here for right lower quadrant pain the patient says he was here yesterday for right testicle pain and had an ultrasound which was normal he was sent home. He said his testicle pain is gone but he has pain in the right lower quadrant that radiates to the right testicle at times. Pain is sharp he says, and constant. He says he has no vomiting no diarrhea no fever. Nothing makes the pain worse or better. ROS All systems reviewed and are negative except as per history of present illness. Medications Home Meds Active Scripts Ibuprofen* (Motrin*) 400 Mg Tab, 400 MG PO Q6H PRN for PAIN AND OR ELEVATED TEMP, #30 TAB Prov:FLORIN GARCIA DO 03/02/19 Reported Medications Famotidine* (Famotidine*) 20 Mg Tablet, 20 MG PO BID, #60 TAB 03/04/19 Clopidogrel Bisulfate* (Clopidogrel Bisulfate*) 75 Mg Tablet, 75 MG PO DAILY, #30 TAB 03/04/19 Atorvastatin* (Atorvastatin*) 40 Mg Tablet, 40 MG PO QHS, #30 TAB 03/04/19 Discontinued Scripts Acetaminophen* (Acetaminophen*) 500 MG Extra Strength Tablet, 500 MG PO Q4H PRN for PAIN AND OR ELEVATED TEMP, #30 TAB Prov:FLORIN GARCIA DO 03/02/19 Allergies Allergies: Coded Allergies: No Known Allergy (Unverified , 03/04/19) PMhx/Soc History of Surgery: No Anesthesia Reaction: No Hx Neurological Disorder: No Hx Respiratory Disorders: No Hx Cardiac Disorders: Yes (HTN) Hx Psychiatric Problems: No Hx Miscellaneous Medical Probl: No Hx Alcohol Use: No Hx Substance Use: No Hx Tobacco Use: Yes (1 cigarette/daily) Smoking Status: Current every day smoker FmHx Family History: No coronary disease Physical Exam Vitals Vital Signs Date Temp Pulse Resp B/P (MAP) Pulse Ox O2 O2 Flow FiO2 Time Delivery Rate 03/04/19 97.7 73 18 130/73 99 10:35 (92) Physical Exam Const: Well-developed, well-nourished Head: Atraumatic, normocephalic Eyes: Normal Conjunctiva, PERRLA, EOMI, normal sclera, no nystagmus ENT: Normal External Ears, Nose and Mouth, moist mucus membranes. Neck: Full range of motion. No meningismus, no lymphadenopathy. Resp: Clear to auscultation bilaterally, no wheezing, rhonchi, rales Cardio: Regular rate and rhythm, no murmurs, S1 S2 present Abd: Soft, mild tenderness to the right lower quadrant, non distended. Normal bowel sounds, no guarding or rebound, no pulsitile abdominal masses or bruits Skin: No petechiae or rashes, no ecchymosis , no maculopapular rash Back: No midline or flank tenderness Ext: No cyanosis, or edema, FROM x 4, normal inspection, neurovascularly intact x 4 Neur: Awake and alert, STR 5/5 x 4, sensation intact x 4, no focal findings, cerebellum intact Psych: Normal Mood and Affect Result Diagram: 03/04/19 1154 03/04/19 1154 Results 24 hrs Laboratory Tests Test 03/04/19 11:54 White Blood Count 7.9 10^3/ul Red Blood Count 4.41 10^6/ul Hemoglobin 13.7 g/dl Hematocrit 41.9 % Mean Corpuscular Volume 95.0 fl Mean Corpuscular Hemoglobin 31.1 pg Mean Corpuscular Hemoglobin Concent 32.7 g/dl Red Cell Distribution Width 12.3 % Platelet Count 232 10^3/UL Mean Platelet Volume 11.0 fl Immature Granulocytes % 0.300 % Neutrophils % 43.7 % Lymphocytes % 28.0 % Monocytes % 10.1 % Eosinophils % 17.3 % Basophils % 0.6 % Nucleated Red Blood Cells % 0.0 /100WBC Immature Granulocytes # 0.020 10^3/ul Neutrophils # 3.5 10^3/ul Lymphocytes # 2.2 10^3/ul Monocytes # 0.8 10^3/ul Eosinophils # 1.4 10^3/ul Basophils # 0.1 10^3/ul Nucleated Red Blood Cells # 0.0 10^3/ul Sodium Level 143 mmol/L Potassium Level 4.4 mmol/L Chloride Level 109 mmol/L Carbon Dioxide Level 31 mmol/L Anion Gap 3 Blood Urea Nitrogen 13 mg/dl Creatinine 0.56 mg/dl Est Glomerular Filtrat Rate mL/min > 60 mL/min Glucose Level 94 mg/dl Calcium Level 8.9 mg/dl Current Medications Medications Dose Sig/Estrella Start Time Status Last (Trade) Ordered Route PRN Stop Time Admin Dose Reason Admin Morphine 4 mg ONCE STAT 03/04/19 DC 03/04/19 Sulfate IV 11:36 12:02 (morphine) 03/04/19 11:37 Ondansetron 4 mg ONCE STAT 03/04/19 DC 03/04/19 HCl (Zofran IV 11:36 12:01 Inj) 03/04/19 11:37 IV Flush 10 ml STK-MED 03/04/19 DC 03/04/19 (NS 10 ml) ONCE .ROUTE 12:35 12:44 03/04/19 12:36 Sodium 100 ml @ ud STK-MED 03/04/19 DC 03/04/19 Chloride ONCE .ROUTE 12:35 12:46 03/04/19 12:36 Iohexol 150 ml STK-MED 03/04/19 DC 03/04/19 (Omnipaque ONCE .ROUTE 12:35 12:47 300mg/ ml) 03/04/19 12:36 Procedures/[place] [id number] Radiology Main Line: [phone] DIAGNOSTIC IMAGING REPORT Patient: CARLOS VOGEL : 1960 Age: 58 Sex: M MR #: [id number] DOS: 03/04/19 1135 Ordering MD: JASIEL PAZ DO Location: E/R Room/Bed: PROCEDURE: CT abdomen and pelvis with contrast CLINICAL INDICATION: Right lower quadrant pain TECHNIQUE: Continues 2.5 mm axial images were obtained from the domes of the diaphragms to the inferior pubic rami following intravenous injection of 100 cc of Isovue 300. The calculated dose length product (DLP) = 350.17 mGy-cm. Exam CTDlvol = 6.39 mGy. One or more of the following dose reduction techniques were used: Automated exposure control, adjustment of the mA and or KV according to patient size, or use of iterative reconstruction technique. DICOM images are available. COMPARISON: 12/01/2017 FINDINGS: Images through the lung bases demonstrate calcified granuloma in the right lower lobe and left lower lobe which is stable from the prior examination. Minimal reticular scarring is noted in the medial right lower lung. Lung bases are otherwise clear. No pleural pericardial fluid is seen. Liver, gallbladder, pancreas, spleen, adrenals, and kidneys are within normal limits. There is no obstructive uropathy. Aorta is normal in caliber without aneurysmal dilatation or dissection. No pathologically enlarged mesenteric lymph nodes are seen. Stomach and small bowel loops are within normal limits. Is no small bowel dilatation or obstruction. No free fluid, free air, abscess is noted in the upper abdomen CT pelvis: Images through the pelvis demonstrate no free fluid, free air, abscess. Bladder is normally distended grossly unremarkable. Prostate and seminal vesicles are within normal limits. Evaluation of the colon demonstrates no diverticulosis, diverticulitis or acute colitis. Normal appendix and terminal ileum are identified. There are no pathologically enlarged iliac chain lymph nodes. No destructive bony lesions are seen. IMPRESSION: 1. No acute inflammatory process, mass, adenopathy. 2. Normal appendix and terminal ileum. 3. Mild constipation. No colitis. 4. Old granulomatous disease in the lung bases RPTAT: HH .All Stauffer MD, MD Date Time Electronically viewed and signed by .All Stauffer MD, MD on 03/04/2019 12:58 .W/ CC: JASIEL PAZ DO [id number] Patient has no evidence of appendicitis. Will discharge home with pain medication he may have some type of foodborne illness or virus Departure Diagnosis: Primary Impression: Abdominal pain Abdominal location: right lower quadrant Qualified Codes: R10.31 - Right lower quadrant pain Condition: Stable JASIEL PAZ DO March 04, 2019 13:11
[2019-03-04 13:28] VITALS: BP 120/65; PULSE 78; RESP 18
== END 2019-03-04 13:31 | disposition home or self-care (01) ==
LOC: E/R 10:32
DX: R10.31 Right lower quadrant pain (principal); I10 Essential (primary) hypertension; F17.210 Nicotine dependence, cigarettes, uncomplicated; R40.2142 Coma scale, eyes open, spontaneous, at arrival to emergency department; R40.2362 Coma scale, best motor response, obeys commands, at arrival to emergency department; R40.2252 Coma scale, best verbal response, oriented, at arrival to emergency department
CPT/HCPCS: 36415; 74177; 80048; 85025; 96374; 96375; J2270; J2405; Q9967; Z7502; Z7610

== ENCOUNTER 2019-03-19 16:50 | Emergency (ER) | payer MEDICAID ==
[~2019-03-19] VITALS: Wt 71.0 kg
[~2019-03-19 16:50] MED LIST changes: -ACET-141 PO; +ATOR40TA68 PO; +CLOP75TA19 PO; +FAMO20TA18 PO; +TRAM50TA2 PO
--- NOTE | 2019-03-19 19:39 | ERD ---
ER Documentation Chief Complaint Chief Complaint CHEST PAIN X 4 DAYS HPI This is a 58-year-old man who is frequently here for multiple complaints. He said he is here for the same typical complaint of right abdominal pain. He was here on March 04 and had another CAT scan of the abdomen that just showed some constipation but no acute appendicitis. He told me however that they found some inflammation in his stomach. He also states that his left upper inner chest hurts this afternoon for a few seconds. He said it hurts more when he moves dislocated at the left costosternal margin around rib #2. No nausea vomiting diarrhea no shortness of breath no fever no current chest pain no pain in the el bows jaws back. ROS All systems reviewed and are negative except as per history of present illness. Medications Home Meds Active Scripts Tramadol HCl (Tramadol HCl) 50 Mg Tablet, 50 MG PO Q6, #20 TAB Prov:JASIEL PAZ DO 03/04/19 Ibuprofen* (Motrin*) 400 Mg Tab, 400 MG PO Q6H PRN for PAIN AND OR ELEVATED TEMP, #30 TAB Prov:FLORIN GARCIA DO 03/02/19 Reported Medications Famotidine* (Famotidine*) 20 Mg Tablet, 20 MG PO BID, #60 TAB 03/04/19 Clopidogrel Bisulfate* (Clopidogrel Bisulfate*) 75 Mg Tablet, 75 MG PO DAILY, #30 TAB 03/04/19 Atorvastatin* (Atorvastatin*) 40 Mg Tablet, 40 MG PO QHS, #30 TAB 03/04/19 Allergies Allergies: Coded Allergies: No Known Allergy (Unverified , 03/04/19) PMhx/Soc History of Surgery: No Anesthesia Reaction: No Hx Neurological Disorder: No Hx Respiratory Disorders: No Hx Cardiac Disorders: Yes (HTN) Hx Psychiatric Problems: No Hx Miscellaneous Medical Probl: No Hx Alcohol Use: No Hx Substance Use: No Hx Tobacco Use: Yes (1 cigarette/daily) Smoking Status: Current every day smoker FmHx Family History: No coronary disease Physical Exam Vitals Vital Signs Date Temp Pulse Resp B/P (MAP) Pulse Ox O2 O2 Flow FiO2 Time Delivery Rate 03/19/19 51 15 117/75 100 Room Air 19:21 (89) 03/19/19 98.0 78 18 146/67 99 16:55 (93) Physical Exam Const: Well-developed, well-nourished Head: Atraumatic, normocephalic Eyes: Normal Conjunctiva, PERRLA, EOMI, normal sclera, no nystagmus ENT: Normal External Ears, Nose and Mouth, moist mucus membranes. Neck: Full range of motion. No meningismus, no lymphadenopathy. Resp: Clear to auscultation bilaterally, no wheezing, rhonchi, rales, there is some reproducible tenderness at the costosternal margin of rib # 1, 2 to palpation Cardio: Regular rate and rhythm, no murmurs, S1 S2 present Abd: Soft, very mild right mid abdominal tenderness, non distended. Normal bowel sounds, no guarding or rebound, no pulsitile abdominal masses or bruits Skin: No petechiae or rashes, no ecchymosis , no maculopapular rash Back: No midline or flank tenderness Ext: No cyanosis, or edema, FROM x 4, normal inspection, neurovascularly intact x 4 Neur: Awake and alert, STR 5/5 x 4, sensation intact x 4, no focal findings, cerebellum intact Psych: Normal Mood and Affect Procedures/MDM EKG: Rate/Rhythm: Sinus bradycardia QRS, ST, QT: NORMAL IA, QRS, QT] Impression: Sinus bradycardia Patient is here yet again for abdominal pain of uncertain etiology. He has had a CAT scan has had multiple CAT scans in the past and do not want to radiate him anymore. I will get a troponin if normal will discharge home he has some musculoskeletal pain Departure Diagnosis: Primary Impression: Costochondritis Additional Impression: Abdominal pain Abdominal location: right lower quadrant Qualified Codes: R10.31 - Right lower quadrant pain Condition: Stable JASIEL PAZ DO Mar 19, 2019 19:39
[2019-03-19] MEDS ORDERED: IBUP800T48 PO (19:40)
[2019-03-19] MEDS ORDERED: HYDROCODONE/APAP (5/325) TAB PO ONE (20:00)
[2019-03-19 20:54] VITALS: BP 112/72; PULSE 61; RESP 15
== END 2019-03-19 20:55 | disposition home or self-care (01) ==
LOC: E/R 16:50
DX: M94.0 Chondrocostal junction syndrome [Tietze] (principal); I10 Essential (primary) hypertension; F17.210 Nicotine dependence, cigarettes, uncomplicated; R10.13 Epigastric pain; Z79.01 Long term (current) use of anticoagulants
CPT/HCPCS: 36415; 84484; Z7502; Z7610; 99283

== ENCOUNTER → 2019-05-22 | Emergency (ER) | payer MEDICAID ==
[~2019-05-22] VITALS: Wt 60.0 kg
[~2019-05-22] MED LIST changes: +AZITHROMYCIN 500 MG TAB PO ONE; +CEFTRIAXONE 250 MG INJ IM ONE; +IBUP800T48 PO; +LIDOCAINE 1% (MPF) 5 ML VIAL INJ ONE; +NAPR-985 PO; +ONDA4TAB14 PO
[2019-05-22 09:21] VITALS: BP 130/89; PULSE 90; RESP 18
--- NOTE | 2019-05-22 11:22 | ERD ---
ER Documentation Chief Complaint Chief Complaint GENITAL SWELLING HPI 59-year-old male presents to ED complaining of right-sided rib pain, leg pain and testicular pain. He reports that he has had the symptoms for several months. He reports that he is homeless and has been to several emergency departments for similar symptoms. He reports that every test has been negative thus far. He states that his testicular pain is 8 out of 10 and comes and goes. He states nothing makes it better. He denies any dysuria, blood in his urine. He denies any new sexual partners in the past month and denies any concerns for STIs at this point. Patient is also a poor historian. Patient is asking for tramadol which she states improves his pain. Patient is homeless and is also asking for sandwich to eat at this time. He denies other medical history. ROS All systems reviewed and are negative except as per history of present illness. Medications Home Meds Active Scripts Naproxen* (Naprosyn*) 500 Mg Tablet, 500 MG PO BID PRN for PAIN AND/OR INFLAMMATION, #30 TAB Prov:NATHAN JOHNSON PA-C 05/22/19 Ondansetron (Ondansetron Odt) 4 Mg Tab.rapdis, 4 MG PO Q6H PRN for NAUSEA AND/OR VOMITING, #15 TAB Prov:NATHAN JOHNSON PA-C 05/22/19 Ibuprofen* (Motrin*) 800 Mg Tab, 800 MG PO Q6H PRN for PAIN AND OR ELEVATED TEMP, #30 TAB Prov:JASIEL PAZ DO 03/19/19 Tramadol HCl (Tramadol HCl) 50 Mg Tablet, 50 MG PO Q6, #20 TAB Prov:JASIEL PAZ DO 03/04/19 Ibuprofen* (Motrin*) 400 Mg Tab, 400 MG PO Q6H PRN for PAIN AND OR ELEVATED TEMP, #30 TAB Prov:FLORIN GARCIA DO 03/02/19 Reported Medications Famotidine* (Famotidine*) 20 Mg Tablet, 20 MG PO BID, #60 TAB 03/04/19 Clopidogrel Bisulfate* (Clopidogrel Bisulfate*) 75 Mg Tablet, 75 MG PO DAILY, #30 TAB 03/04/19 Atorvastatin* (Atorvastatin*) 40 Mg Tablet, 40 MG PO QHS, #30 TAB 03/04/19 Allergies Allergies: Coded Allergies: No Known Allergy (Unverified , 03/04/19) PMhx/Soc History of Surgery: No Anesthesia Reaction: No Hx Neurological Disorder: No Hx Respiratory Disorders: No Hx Cardiac Disorders: Yes (HTN) Hx Psychiatric Problems: No Hx Miscellaneous Medical Probl: No Hx Alcohol Use: No Hx Substance Use: No Hx Tobacco Use: Yes (1 cigarette/daily) Smoking Status: Current every day smoker FmHx Family History: No diabetes Physical Exam Vitals Vital Signs Date Temp Pulse Resp B/P (MAP) Pulse Ox O2 O2 Flow FiO2 Time Delivery Rate 05/22/19 98.1 90 18 130/89 99 09:21 (103) Physical Exam Const: No acute distress. Neck: Full range of motion. Resp: Clear to auscultation bilaterally Cardio: Regular rate and rhythm Abd: Soft, nonspecific abd tenderness on the RLQ, non distended. Pt able to walk around and jump up/down several times without pain Skin: No petechiae or rashes : Uncircumcised, tenderness on the right testicle. No discharge present, no LAD Back: Nonspecific tenderness to the lower back Neur: Awake and alert Psych: Normal Mood and Affect Results 24 hrs Laboratory Tests Test 05/22/19 10:14 Urine Color YELLOW Urine Clarity CLEAR Urine pH 5.0 Urine Specific Painter 1.023 Urine Ketones NEGATIVE mg/dL Urine Nitrite NEGATIVE mg/dL Urine Bilirubin NEGATIVE mg/dL Urine Urobilinogen NEGATIVE mg/dL Urine Leukocyte Esterase NEGATIVE Jose Rafael/ul Urine Hemoglobin NEGATIVE mg/dL Urine Glucose NEGATIVE mg/dL Urine Total Protein NEGATIVE mg/dl Current Medications Medications Dose Sig/Estrella Start Time Status Last (Trade) Ordered Route PRN Stop Time Admin Dose Reason Admin 1,000 mg ONCE ONCE 05/22/19 DC 05/22/19 Azithromycin PO 11:30 11:30 (Zithromax) 05/22/19 11:31 Ceftriaxone 250 mg ONCE ONCE 05/22/19 DC 05/22/19 Sodium IM 11:30 11:30 (Rocephin) 05/22/19 11:31 Lidocaine 5 ml ONCE ONCE 05/22/19 DC 05/22/19 (Xylocaine INJ 11:30 11:30 1% (Mpf)) 05/22/19 11:31 Procedures/MDM ED COURSE: The patient was stable throughout ED course. I kept the patient informed of laboratory and diagnostic imaging results throughout the ED course. DIAGNOSTIC IMAGING: Read by radiologist. PROCEDURE: US Scrotum. CLINICAL INDICATION: Right testicular pain TECHNIQUE: Multiple sonographic images of the scrotal region were obtained utilizing a linear array transducer with grayscale and color-flow and a Doppler imaging. COMPARISON: Scrotal ultrasound 03/02/2019 FINDINGS: The testicles are normal in size the right measuring 4.06 x 2.5 x 3.39 cm and the left measuring 4.01 x 2.23 x 2.98 cm. The testicular parenchymal echogenicity is normal bilaterally without focal lesions. Flow to both testicles without ultrasonic evidence of testicular torsion. The epididymal heads are normal in size with the right measuring 1.11 x 0.93 x 0.99 cm and the left measuring 1.15 x 1.05 x 0.79 cm. Within the left epididymal head is a small 0.4 cm cyst. No other epididymal lesions. Small left hydrocele. No right hydrocele. No varicoceles demonstrated. IMPRESSION: 1. No significant change. 2. Unremarkable testicles without focal lesions and no ultrasonic evidence of testicular torsion. 3. 0.4 cm left epididymal head cyst. 4. Small left hydrocele. RPTAT:AAJJ Physician Yoselyn Date Time Electronically viewed and signed by Physician Yoselyn on 05/22/2019 10:57 MEDICATIONS GIVEN: Lidocaine, Rocephin, azithromycin Patient tolerated medication well with no adverse reactions. Patient reported improvement in pain. nutrition services assistant was consulted but the patient left without being seen by them. MEDICAL DECISION MAKING: Patient is a 59-year-old homeless patient complaining of nonspecific right-sided pain including in his testicles. Patient denied any penile discharge, blood in his urine. Ultrasound of the testicles was done showing left-sided hydrocele and cyst on epididymis that was benign. Based on H&P, I have Low suspicion for pyelonephritis, nephrolithiasis, appendicitis, epididymitis, urethritis, orchitis, balanitis, prostatitis, phimosis, priapism, penile contusion, incarcerated hernia or strangulated hernia. Patient also asked for gonorrhea chlamydia test. This was sent out and patient was told that we will call him if results were positive. Patient stated that he wanted go ahead and be treated for these. He was given an injection of Rocephin and tablet of azithromycin. Patient tolerated medication without any adverse side effects reactions. Patient was given food in the ED stay and social service was contacted however patient left without being seen by them. Patient was given strict return to ED precautions if symptoms persist or worsen. All questions were answered. Patient agreed with the plan Vital signs were reviewed. Patient is afebrile. Patient was not hypoxic. Patient was hemodynamically stable. Patient was told to follow up with primary care for further care and management. PRESCRIPTION: Naproxen, Zofran DISCHARGE: At this time, patient is stable for discharge and outpatient management. I have instructed the patient to follow-up with their primary care physician in 1-2 days. I have discussed with the patient the possibility of needing to see a specialist for further workup and imaging studies if symptoms persist. I have instructed the patient to promptly return to the ER for any new or worsening symptoms including increased pain, fever, nausea, vomiting, weakness or LOC. The patient expressed understanding of and agreement with this plan. All questions were answered. Home care instructions were provided. Disclaimer: Inadvertent spelling and grammatical errors are likely due to EHR/dictation software use and do not reflect on the overall quality of patient care. Also, please note that the electronic time recorded on this note does not necessarily reflect the actual time of the patient encounter. Departure Diagnosis: Primary Impression: Pain of male genitalia Condition: Fair Patient Instructions: What Are Sexually Transmitted Diseases (STDs)? Referrals: ON LICENSE OF [facility] YOU HAVE RECEIVED A MEDICAL SCREENING EXAM AND THE RESULTS INDICATE THAT YOU DO NOT HAVE A CONDITION THAT REQUIRES URGENT TREATMENT IN THE EMERGENCY DEPARTMENT. FURTHER EVALUATION AND TREATMENT OF YOUR CONDITION CAN WAIT UNTIL YOU ARE SEEN IN YOUR DOCTORS OFFICE WITHIN THE NEXT 1-2 DAYS. IT IS YOUR RESPONSIBILITY TO MAKE AN APPOINTMENT FOR FOLOW-UP CARE. IF YOU HAVE A PRIMARY DOCTOR --you should call your primary doctor and schedule an appointment IF YOU DO NOT HAVE A PRIMARY DOCTOR YOU CAN CALL OUR PHYSICIAN REFERRAL HOTLINE AT IF YOU CAN NOT AFFORD TO SEE A PHYSICIAN YOU CAN CHOSE FROM THE FOLLOWING [facility] [address] [facility]. [facility] [address] [facility]. [facility] [address] [facility] [address] [facility] [address] [facility]. [facility] [address] [facility]. [facility] YOU HAVE RECEIVED A MEDICAL SCREENING EXAM AND THE RESULTS INDICATE THAT YOU DO NOT HAVE A CONDITION THAT REQUIRES URGENT TREATMENT IN THE EMERGENCY DEPARTMENT. FURTHER EVALUATION AND TREATMENT OF YOUR CONDITION CAN WAIT UNTIL YOU ARE SEEN IN YOUR DOCTORS OFFICE WITHIN THE NEXT 1-2 DAYS. IT IS YOUR RESPONSIBILITY TO MAKE AN APPOINTMENT FOR FOLOW-UP CARE. IF YOU HAVE A PRIMARY DOCTOR --you should call your primary doctor and schedule and appointment IF YOU DO NOT HAVE A PRIMARY DOCTOR YOU CAN CALL OUR PHYSICIAN REFERRAL HOTLINE AT . IF YOU CAN NOT AFFORD TO SEE A PHYSICIAN YOU CAN CHOSE FROM THE FOLLOWING [facility] INSTITUTIONS: [facility] [address] [place] [address] [facility] [address] [place] [address] [facility] [address] [place] [address] Additional Instructions: Llame al doctor MAANA y orme ben MILAGROS PARA DENTRO DE 1-2 ROSS.Dgale a la secretaria que nosotros le instruimos hacer esta milagros.Avise o llame si ramirez condicin se empeora antes de la milagros. Regresa aqui si peor o no mejor. NATHAN JOHNSON PA-C May 22, 2019 11:22
== END | disposition home or self-care (01) ==
LOC: FTE 09:18
DX: N50.811 Right testicular pain (principal); I10 Essential (primary) hypertension; F17.210 Nicotine dependence, cigarettes, uncomplicated; Z59.0 Homelessness; Z79.01 Long term (current) use of anticoagulants
CPT/HCPCS: 76870; 81003; 87591; J0696; Z7610; 96372

== ENCOUNTER 2019-05-31 04:08 | Emergency (ER) | payer MEDICAID ==
[~2019-05-31] VITALS: Ht 165.1 cm; Wt 55.7 kg
[~2019-05-31 04:08] MED LIST changes: -AZITHROMYCIN 500 MG TAB PO ONE; -CEFTRIAXONE 250 MG INJ IM ONE; -LIDOCAINE 1% (MPF) 5 ML VIAL INJ ONE
[2019-05-31 04:15] VITALS: Ht 165.1 cm; Wt 55.7 kg
[2019-05-31] MEDS ORDERED: ACETAMINOPHEN 500 MG TAB PO STA (04:52)
--- NOTE | 2019-05-31 04:56 | ERD ---
ER Documentation Chief Complaint Chief Complaint RUQ & RLQ abd pain radiating to testicle HPI 59-year-old male presents for ablation of right upper quadrant and chronic testicular pain. Patient was seen on May 22, for the same symptoms, he had an ultrasound that showed no acute findings, did show a small epididymal cyst. He denies a fever, denies any urinary symptoms. He is homeless, and states primarily he is here because he is unhappy with his living situation. ROS All systems reviewed and are negative except as per history of present illness. Medications Home Meds Active Scripts Naproxen* (Naprosyn*) 500 Mg Tablet, 500 MG PO BID PRN for PAIN AND/OR INFLAMMATION, #30 TAB Prov:NATHAN JOHNSON PA-C 05/22/19 Ondansetron (Ondansetron Odt) 4 Mg Tab.rapdis, 4 MG PO Q6H PRN for NAUSEA AND/OR VOMITING, #15 TAB Prov:NATHAN JOHNSON PA-C 05/22/19 Ibuprofen* (Motrin*) 800 Mg Tab, 800 MG PO Q6H PRN for PAIN AND OR ELEVATED TEMP, #30 TAB Prov:JASIEL PAZ DO 03/19/19 Tramadol HCl (Tramadol HCl) 50 Mg Tablet, 50 MG PO Q6, #20 TAB Prov:JASIEL PAZ DO 03/04/19 Ibuprofen* (Motrin*) 400 Mg Tab, 400 MG PO Q6H PRN for PAIN AND OR ELEVATED TEMP, #30 TAB Prov:FLORIN GARCIA DO 03/02/19 Reported Medications Famotidine* (Famotidine*) 20 Mg Tablet, 20 MG PO BID, #60 TAB 03/04/19 Clopidogrel Bisulfate* (Clopidogrel Bisulfate*) 75 Mg Tablet, 75 MG PO DAILY, #30 TAB 03/04/19 Atorvastatin* (Atorvastatin*) 40 Mg Tablet, 40 MG PO QHS, #30 TAB 03/04/19 Allergies Allergies: Coded Allergies: No Known Allergy (Unverified , 03/04/19) PMhx/Soc History of Surgery: No Anesthesia Reaction: No Hx Neurological Disorder: No Hx Respiratory Disorders: No Hx Cardiac Disorders: Yes (HTN) Hx Psychiatric Problems: No Hx Miscellaneous Medical Probl: No Hx Alcohol Use: No Hx Substance Use: No Hx Tobacco Use: Yes (1 cigarette/daily) Physical Exam Vitals Vital Signs Date Temp Pulse Resp B/P (MAP) Pulse Ox O2 O2 Flow FiO2 Time Delivery Rate 05/31/19 97.0 84 18 162/85 98 04:15 (110) Physical Exam Const: No acute distress Head: Atraumatic Eyes: Normal Conjunctiva ENT: Normal External Ears, Nose and Mouth. Neck: Full range of motion. No meningismus. Resp: Clear to auscultation bilaterally Cardio: Regular rate and rhythm, no murmurs Abd: Soft, non tender, non distended, no rebound or guarding, no McBurney's point tenderness, negative Pinto sign normal bowel sounds exam: Normal testicular exam, no swelling, no induration. Skin: No petechiae or rashes Back: No midline or flank tenderness Ext: No cyanosis, or edema Neur: Awake and alert Psych: Normal Mood and Affect Result Diagram: 05/31/19 0457 Results 24 hrs Laboratory Tests Test 05/31/19 04:57 05/31/19 05:29 Urine Color YELLOW Urine Clarity CLEAR Urine pH 6.0 Urine Specific [place] 1.015 Urine Ketones NEGATIVE mg/dL Urine Nitrite NEGATIVE mg/dL Urine Bilirubin NEGATIVE mg/dL Urine Urobilinogen NEGATIVE mg/dL Urine Leukocyte Esterase NEGATIVE Jose Rafael/ul Urine Hemoglobin NEGATIVE mg/dL Urine Glucose NEGATIVE mg/dL Urine Total Protein NEGATIVE mg/dl Sodium Level 139 mmol/L Potassium Level 3.7 mmol/L Chloride Level 103 mmol/L Carbon Dioxide Level 28 mmol/L Anion Gap 8 Blood Urea Nitrogen 18 mg/dl Creatinine 0.53 mg/dl Est Glomerular Filtrat Rate mL/min > 60 mL/min Glucose Level 99 mg/dl Calcium Level 9.3 mg/dl Total Bilirubin 0.6 mg/dl Direct Bilirubin 0.00 mg/dl Indirect Bilirubin 0.6 mg/dl Aspartate Amino Transf (AST/SGOT) 56 IU/L Alanine Aminotransferase (ALT/SGPT) 39 IU/L Alkaline Phosphatase 102 IU/L Total Protein 7.5 g/dl Albumin 4.2 g/dl Globulin 3.30 g/dl Albumin/Globulin Ratio 1.27 Lipase 92 U/L Urine Opiates Screen Negative Urine Barbiturates Negative Urine Amphetamines Screen POSITIVE Urine Benzodiazepines Screen Negative Urine Cocaine Screen Negative Urine Cannabinoids Negative White Blood Count Pending Red Blood Count Pending Hemoglobin Pending Hematocrit Pending Mean Corpuscular Volume Pending Mean Corpuscular Hemoglobin Pending Mean Corpuscular Hemoglobin Concent Pending Red Cell Distribution Width Pending Platelet Count Pending Mean Platelet Volume Pending Current Medications Medications Dose Sig/Estrella Start Time Status Last (Trade) Ordered Route PRN Stop Time Admin Dose Reason Admin 1,000 mg ONCE STAT 05/31/19 DC 05/31/19 Acetaminophen PO 04:52 05:02 (Tylenol 05/31/19 04:54 Tab) Procedures/MDM 59-year-old male presents for relation of abdominal pain and testicular pain. On exam patient is nontoxic-appearing, he has no peritoneal signs, I have very low suspicion for acute pathology, urinalysis sent, to further evaluate, 5:56 AM: Patient's labs are overall unremarkable, serial abdominal exams have shown no acute worsening, at this point I do not suspect intra-abdominal pathology, do not suspect testicular torsion or epididymitis. Patient request social work, consult request placed. Departure Diagnosis: Primary Impression: Abdominal pain Abdominal location: unspecified location Qualified Codes: R10.9 - Unspecified abdominal pain Condition: Stable HOWIE PAYTON MD May 31, 2019 04:56
[2019-05-31 06:25] VITALS: BP 127/96; PULSE 67; RESP 19
== END 2019-05-31 09:41 | disposition home or self-care (01) ==
LOC: E/R 04:08
DX: R10.11 Right upper quadrant pain (principal); I10 Essential (primary) hypertension; F17.210 Nicotine dependence, cigarettes, uncomplicated; Z79.01 Long term (current) use of anticoagulants
CPT/HCPCS: 80053; 80307; 81003; 83690; 85025; Z7610; 36415